=== PATIENT | male | born 1985 | race Caucasian/White ===

== ENCOUNTER 2016-11-17 01:07 | Emergency (ER) | payer BC, OTHER ==
[2016-11-17] MEDS ORDERED: diphenhydrAMINE 50 MG/ML 1 ML VIAL IVP STA (01:34)
[2016-11-17] MEDS ORDERED: SODIUM CHLORIDE 0.9% 1,000 ML IV ONE (01:34)
[2016-11-17] MEDS ORDERED: KETOROLAC 30 MG/ML 1 ML VIAL IVP STA (01:37)
[2016-11-17 02:11] LABS: Basophils # (A) 0.1 k/uL (0-0.2); Basophils % (A) 1 %; CH 29.5; CHCM 34.7; Eosinophils # (A) 0.1 k/uL (0-0.7); Eosinophils % (A) 2 %; HCT 43.7 % (39.0-53.0); HDW 2.88; HGB 14.7 gm/dL (13.0-17.5); Luc # (Auto) 0.17; Luc % (Auto) 3; Lymphocytes # (A) 1.7 k/uL (1.0-4.8); Lymphocytes % (A) 33 %; MCH 28.7 pg (25.0-35.0); MCHC 33.6 g/dL (31.0-37.0); MCV 85.3 fL (80.0-100.0); Mean Platelet Volume 8.5; Monocytes # (A) 0.4 k/uL (0-1.0); Monocytes % (A) 7 %; Neutrophils # (A) 2.8 k/uL (1.3-7.7); Neutrophils % (A) 54 %; RBC 5.12 m/uL (4.30-5.90); RDW 13.3 % (11.5-15.5); WBC 5.2 k/uL (3.8-10.6); WBC (Perox) 5.15
[2016-11-17 02:37] LABS: ALT 98 U/L (21-72); AST 55 U/L (17-59); Alkaline Phosphatase 55 U/L (38-126); Anion Gap 8 mmol/L; Blood Urea Nitrogen 12 mg/dL (9-20); Calcium 9.5 mg/dL (8.4-10.2); Carbon Dioxide 24 mmol/L (22-30); Chloride 109 mmol/L (98-107); Glucose 86 mg/dL (74-99); Non-African American GFR(MDRD) >60 (>60 ml/min/1.73 sqM); Sodium 141 mmol/L (137-145); Total Bilirubin 0.4 mg/dL (0.2-1.3); Total Protein 7.3 g/dL (6.3-8.2)
[2016-11-17 02:38] LABS: Potassium 4.1 mmol/L (3.5-5.1)
[2016-11-17 02:53] LABS: Erythrocyte Sedimentation Rate 2 mm/hr (0-15)
--- NOTE | 2016-11-17 03:26 | CT ---
History: Reason: Pain Exam: CT FACIAL Without Contrast axial noncontrast images through the face with multiplanar reformatted images Technique more: CTDI is 32.10 mGy and DLP is 513 mGy-cm Technique more: This CT exam was performed using one or more of the following dose reduction techniques: automated exposure control, adjustment of the mA and/or kV according to patient size, and/or use of iterative reconstruction technique. Comparison: 03/21/2016 FINDINGS: There is mild stranding and edema around the periauricular soft tissues and at the superficial aspect of the right parotid gland. Soft tissue swelling and edema of the soft tissues about the right external auditory canal may be related to inflammatory, infectious process, clinically correlate. No evidence of focal drainable fluid collection identified. Recommend follow-up to resolution. Soft tissue linear weblike areas of thickening adjacent to the right tympanic membrane. The middle ear appears clear. Hypoplastic mastoids appear clear. The TMJs appear normally located. IMPRESSION: There is mild stranding and edema around the periauricular soft tissues and at the superficial aspect of the right parotid gland. Soft tissue swelling and edema of the soft tissues about the right external auditory canal may be related to inflammatory, infectious process, clinically correlate. No evidence of focal drainable fluid collection identified. Recommend follow-up to resolution. Soft tissue linear weblike areas of thickening adjacent to the right tympanic membrane. The middle ear appears clear.
--- NOTE | 2016-11-17 03:29 | ED ---
ENT HPI - General Chief complaint: ENT Stated complaint: ear pain Time Seen by Provider: 11/17/16 01:17 Source: patient, RN notes reviewed, old records reviewed Mode of arrival: ambulatory Limitations: no limitations - History of Present Illness Initial comments: This is a 31 year old male who presents for chief complaint of right ear pain and welling, left ear pain and redness for 3 days. Patient reports he has a lengthy history of ear infections. He states he had a cut underneath the right ear because of swelling, so patient put neosporin on it. Since putting neosporin on it, patient ear has been swelling. Patient reports when he has had previous issues with his ears, he was prescribed drops and oral antibiotics. Patient denies swimming, hot tubs. Patient reports pain and swelling around the ears toward the face and jaw. Patient denies fever, chills, headache, vision changes, shortness of breath, cough, chest pain, nausea, vomiting, diarrhea. MD complaint: ear pain - Related Data Previous Rx's Medication Instructions Recorded Ofloxacin 0.3% Otic Soln [Floxin 10 drops BOTH EARS TID 7 Days 03/21/16 0.3% Otic Soln] Ciprofloxacin HCl [Cipro] 750 mg PO BID 7 Days 11/17/16 HYDROcodone/APAP 10-325MG [[place] 1 tab PO Q6H PRN #12 tab 11/17/16 10-325] Ofloxacin 0.3% Otic Soln [Floxin 10 drops BOTH EARS BID #1 bottle 11/17/16 0.3% Otic Soln] Allergies Allergy/AdvReac Type Severity Reaction Status Date / Time No Known Allergies Allergy Verified 03/21/16 16:20 Review of Systems ROS Statement: Those systems with pertinent positive or pertinent negative responses have been documented in the HPI. ROS Other: All systems not noted in ROS Statement are negative. Past Medical History Past Medical History: Renal Disease History of Any Multi-Drug Resistant Organisms: None Reported Past Surgical History: No Surgical Hx Reported Past Psychological History: No Psychological Hx Reported Smoking Status: Current every day smoker Past Alcohol Use History: None Reported Past Drug Use History: None Reported General Exam Limitations: no limitations General appearance: alert, in no apparent distress Head exam: Present: atraumatic, normocephalic, normal inspection Eye exam: Present: normal appearance, PERRL, EOMI. Absent: scleral icterus, conjunctival injection, periorbital swelling ENT exam: Present: normal exam, normal oropharynx, mucous membranes moist, TM's normal bilaterally (TM normal, ear canal patent. bilateral ears are red, swollwen. Tenderness over mastoid process. ). Absent: normal external ear exam Neck exam: Present: normal inspection. Absent: tenderness, meningismus, lymphadenopathy Respiratory exam: Present: normal lung sounds bilaterally. Absent: respiratory distress, wheezes, rales, rhonchi, stridor Cardiovascular Exam: Present: regular rate, normal rhythm, normal heart sounds. Absent: systolic murmur, diastolic murmur, rubs, gallop, clicks GI/Abdominal exam: Present: soft, normal bowel sounds. Absent: distended, tenderness, guarding, rebound, rigid Extremities exam: Present: normal inspection, full ROM, normal capillary refill. Absent: tenderness, pedal edema, joint swelling, calf tenderness Back exam: Present: normal inspection Neurological exam: Present: alert, oriented X3, CN II-XII intact Psychiatric exam: Present: normal affect, normal mood Skin exam: Present: warm, dry, intact, normal color. Absent: rash Course Vital Signs 11/17/16 11/17/16 01:11 03:52 Temperature 97.6 F 97.8 F Pulse Rate 102 H 79 Respiratory 18 16 Rate Blood Pressure 180/103 153/96 O2 Sat by Pulse 100 99 Oximetry Medical Decision Making - Medical Decision Making his is a year ol irvin who presents for chief complaint of right ear pain and welling, left ear pain and redness for 3 days. Patient reports he has a lengthy history of ear infections. He states he had a cut underneath the right ear because of swelling, so patient put neosporin on it. Since putting neosporin on it, patient ear has been swelling. Patient reports when he has had previous issues with his ears, he was prescribed drops and oral antibiotics. Patient has significant swelling and erythema on bilateral ears. Patient appears to be hacing an allergic reaction to neosporin, as well as soft tissue inflammation or infection. PAtient is tender over mastoid process. CT facial bones completed , no evidence of mastoiditis. Patient lab work was benign. Patient will be started opn floxacin drops, as well as cipro PO. Patient old records report that that has worked well for his ear issues in the past. - Lab Data Result diagrams: 11/17/16 01:40 11/17/16 01:40 Lab Results 11/17/16 11/17/16 11/17/16 Range/Units 01:40 01:40 01:40 WBC 5.2 (3.8-10.6) k/uL RBC 5.12 (4.30-5.90) m/uL Hgb 14.7 (13.0-17.5) gm/dL Hct 43.7 (39.0-53.0) % MCV 85.3 (80.0-100.0) fL MCH 28.7 (25.0-35.0) pg MCHC 33.6 (31.0-37.0) g/dL RDW 13.3 (11.5-15.5) % Plt Count 144 L (150-450) k/uL Neutrophils % 54 % Lymphocytes % 33 % Monocytes % 7 % Eosinophils % 2 % Basophils % 1 % Neutrophils # 2.8 (1.3-7.7) k/uL Lymphocytes # 1.7 (1.0-4.8) k/uL Monocytes # 0.4 (0-1.0) k/uL Eosinophils # 0.1 (0-0.7) k/uL Basophils # 0.1 (0-0.2) k/uL ESR 2 (0-15) mm/hr Sodium 141 (137-145) mmol/L Potassium 4.1 (3.5-5.1) mmol/L Chloride 109 H (98-107) mmol/L Carbon Dioxide 24 (22-30) mmol/L Anion Gap 8 mmol/L BUN 12 (9-20) mg/dL Creatinine 0.80 (0.66-1.25) mg/dL Est GFR (MDRD) Af Amer >60 (>60 ml/min/1.73 sqM) Est GFR (MDRD) Non-Af >60 (>60 ml/min/1.73 sqM) Glucose 86 (74-99) mg/dL Plasma Lactic Acid Leander 1.3 (0.7-2.0) mmol/L Calcium 9.5 (8.4-10.2) mg/dL Total Bilirubin 0.4 (0.2-1.3) mg/dL AST 55 (17-59) U/L ALT 98 H (21-72) U/L Alkaline Phosphatase 55 (38-126) U/L Total Protein 7.3 (6.3-8.2) g/dL Albumin 4.7 (3.5-5.0) g/dL - Radiology Data Radiology results: report reviewed Mild stranding and edema at the periauricular soft tissues of the superficial aspect of the right parotid gland. Soft tissue swelling and edema of the soft tissues of the right external auditory canal her knowledge are canal AV related to inflammatory, infectious process. No evidence of focal drainable fluid collection identified. Soft linear weblike areas of thickening adjacent to the right tympanic membrane. Middle ear appears clear. Disposition Clinical Impression: Allergic reaction caused by a drug, Ear infection Disposition: ADMITTED IP TO THIS [facility] Condition: Stable Instructions: Otitis Externa (ED) Additional Instructions: Advised to follow-up with ENT specialist as soon as possible. Continue use the antibiotic eardrops. Take pain medication as needed. Patient is advised to stay home from work for the next day. Return to the emergency department if any alarming signs or symptoms occur. Prescriptions: Ciprofloxacin HCl [Cipro] 750 mg PO BID 7 Days HYDROcodone/APAP 10-325MG [[place] 10-325] 1 tab PO Q6H PRN #12 tab PRN Reason: Pain Ofloxacin 0.3% Otic Soln [Floxin 0.3% Otic Soln] 10 drops BOTH EARS BID #1 bottle Referrals: Celestino Estrada DO [Doctor of Osteopathic Medicine] - 1-2 days Time of Disposition: 03:41
[2016-11-17] MEDS ORDERED: HYDROmorphone 1 MG/ML 1 ML SYRINGE IVP STA (03:38)
[2016-11-17] MEDS ORDERED: CIPROFLOXACIN HCL 500 MG TAB PO STA (03:39)
[2016-11-17 03:53] VITALS: BP 153/96; PULSE 79; RESP 16; TEMP 97.8
== END 2016-11-17 04:07 | disposition home or self-care (01) ==
LOC: EC 01:07
DX: H92.01 Otalgia, right ear (principal); R22.0 Localized swelling, mass and lump, head; H93.8X1 Other specified disorders of right ear; T50.905A Adverse effect of unspecified drugs, medicaments and biological substances, initial encounter; H60.391 Other infective otitis externa, right ear; F17.200 Nicotine dependence, unspecified, uncomplicated
CPT/HCPCS: 99284; 96374; 96375 ×2; 96361; 36415; 80053; 86696; 86694; 86695; 85652; 83605; 85025; 70486; J1200; J1885; J1170

== ENCOUNTER 2016-12-07 19:39 | Emergency (ER) | payer SELFPAY ==
[2016-12-07 19:48] VITALS: BP 167/97; PULSE 105; RESP 18; TEMP 97.5
[2016-12-07] MEDS ORDERED: ACET/COD 300 MG/30 MG STARTER PACK 6 TAB BTL PO STA (20:07)
[2016-12-07] MEDS ORDERED: CIPROFLOXACIN-DEXAMETH 0.3-0.1% DROPS 7.5 ML BTL RIGHT EAR STA (20:08)
--- NOTE | 2016-12-07 20:13 | ED ---
General Adult HPI - General Chief complaint: Fall Stated complaint: Fall-head pain Time Seen by Provider: 12/07/16 19:56 Source: patient, RN notes reviewed Mode of arrival: ambulatory Limitations: no limitations - History of Present Illness Initial comments: 31 year old male presents to the ER complaining of recent fall secondary to ear pain. He states that he has a long-standing history of urinary issues including eczema and multiple infections. He states that his right ear has been causing him discomfort and dizziness. He states that he was walking on the stairs when he became dizzy he went to grab the railing and his right head hit the railing he pushed off because he didn't want hit his head too hard and hit his right shoulder on the other side. He states that he did not lose consciousness and has had no vomiting. He states that he has had no memory loss , no blurry vision, no double vision. He states that he has not taken anything for pain at this point. But that he describes his pain is moderate to severe. He states that his shoulder is uncomfortable he does have full range of motion and he feels that it is what he describes as tight. - Related Data Previous Rx's Medication Instructions Recorded Acetaminophen-Codeine 300-30mg 1 tab PO Q6H PRN #20 tablet 12/07/16 [Tylenol #3] Ibuprofen [Motrin] 800 mg PO TID #30 tab 12/07/16 Allergies Allergy/AdvReac Type Severity Reaction Status Date / Time No Known Allergies Allergy Verified 03/21/16 16:20 Review of Systems ROS Statement: Those systems with pertinent positive or pertinent negative responses have been documented in the HPI. ROS Other: All systems not noted in ROS Statement are negative. Past Medical History Past Medical History: Renal Disease History of Any Multi-Drug Resistant Organisms: None Reported Past Surgical History: No Surgical Hx Reported Past Psychological History: No Psychological Hx Reported Smoking Status: Current every day smoker Past Alcohol Use History: None Reported Past Drug Use History: None Reported General Exam Limitations: no limitations General appearance: alert, in distress (Secondary to discomfort) Head exam: Present: normocephalic, other (Mild edema left parietal scalp. No abrasion, laceration.) Eye exam: Present: normal appearance, PERRL, EOMI Pupils: Present: normal accommodation ENT exam: Present: other (Right ear: Diffuse eczema with skin breakdown exterior ear. External auditory canal with edema, erythema, mild discharge. Unable to fully visualize tympanic membrane. Left ER: External ear within normal limits, evidence of scarring on the tympanic membrane no erythema.) Neck exam: Present: normal inspection Respiratory exam: Present: normal lung sounds bilaterally Cardiovascular Exam: Present: regular rate, normal rhythm Extremities exam: Present: normal inspection, full ROM, tenderness (Anterior shoulder), normal capillary refill, other (Neurovascular status of right upper extremity is intact. He does have full range of motion and full muscular strength.) Neurological exam: Present: alert, oriented X3, CN II-XII intact, normal gait Psychiatric exam: Present: normal affect, normal mood Skin exam: Present: warm, dry, intact Course Vital Signs 12/07/16 19:41 Temperature 97.5 F L Pulse Rate 105 H Respiratory 18 Rate Blood Pressure 167/97 O2 Sat by Pulse 99 Oximetry Medical Decision Making - Medical Decision Making 22 male presents to the ER complaining of ear pain, dizziness, subsequent fall secondary to the dizziness in which he hit his right shoulder and left head. He did not lose consciousness and his neurological exam was within normal limits today. He did have a mild amount of swelling on the scalp. No abrasion or laceration. I did not feel that any imaging was necessary due to remarkable exam. His right ear did have diffuse skin breakdown and evidence of otitis externa. We'll recommend treating the otitis externa and his first was a Ciprodex was given in the ER. Due to diffuse pain with this was given Tylenol 3 in the ER as well as a prescription to use at home. Was recommended to alternate Tylenol and ibuprofen to help with swelling. Shoulder exam appeared to be indicative of a shoulder strain and contusion. He does not have any laceration or abrasion or ecchymosis. No step-off and template the shoulder appeared to be without any dislocation or subluxation. The patient had full range of motion and only some mild anterior tenderness. Was discussed with the patient mother not to an x-ray wouldn't decided to hold off on that at this point as he has a fairly benign exam. Stated that the Motrin and Tylenol will help decrease the discomfort and I recommended rest and ice to the area. He was encouraged to reestablish with a primary physician and ENT with his long- standing ear issues. All questions were answered and patient was agreeable with treatment plan. To return to the ER if any worsening symptoms or new concerns. He shouldn't to watch for any concussive symptoms including vision changes, severe headache, vomiting. Disposition Clinical Impression: Otitis externa of right ear, Fall, Hematoma of scalp, Shoulder contusion Disposition: HOME SELF-CARE Condition: Stable Instructions: Otitis Externa (ED), Shoulder Pain (ED) Additional Instructions: Encouraged to establish with a primary care physician this week. To return to the ER with any worsening symptoms or concerns. Also recommend establishing with ear nose and throat doctor. Warning signs and symptoms of a concussion were discussed with the patient he is return if any of these. Prescriptions: Acetaminophen-Codeine 300-30mg [Tylenol #3] 1 tab PO Q6H PRN #20 tablet PRN Reason: Pain Ibuprofen [Motrin] 800 mg PO TID #30 tab Referrals: Ruth Ann MD [STAFF PHYSICIAN] - 1-2 days David Romeo MD [STAFF PHYSICIAN] - 1-2 days Time of Disposition: 20:29
== END 2016-12-07 20:24 | disposition home or self-care (01) ==
LOC: EC 19:39
DX: S00.03XA Contusion of scalp, initial encounter (principal); S40.011A Contusion of right shoulder, initial encounter; H60.91 Unspecified otitis externa, right ear; F17.200 Nicotine dependence, unspecified, uncomplicated; W10.9XXA Fall (on) (from) unspecified stairs and steps, initial encounter; Y92.009 Unspecified place in unspecified non-institutional (private) residence as the place of occurrence of the external cause
CPT/HCPCS: 99283

== ENCOUNTER 2016-12-31 23:51 | Emergency (ER) | payer BC, OTHER ==
--- NOTE | 2017-01-01 02:23 | XR ---
ADDENDUM - Added by Alexandra Easton M.D. on 01/01/2017 2:24 AM (-07:00) Impression should read: No acute fracture or dislocation identified. Trace right knee joint effusion. Possible thin linear ossification in the medial distal right thigh muscles, nonspecific. EXAM: XR Right Knee, 3 views CLINICAL HISTORY: Reason: Pain in RT knee from repeatitive motion at work. TECHNIQUE: Three views of the right knee. COMPARISON: None FINDINGS: Bones/joints: No acute fracture or dislocation identified. Joint space is maintained. No bony lesion. Trace right knee joint effusion. Thin linear ossification projected over the medial distal right thigh muscles, nonspecific. Soft tissues: Normal. IMPRESSION: No acute abnormality identified.
[2017-01-01] MEDS ORDERED: KETOROLAC 60 MG/2 ML VIAL IM STA (02:50)
--- NOTE | 2017-01-01 02:51 | ED ---
Extremity Problem HPI - General Chief complaint: Extremity Problem,Nontraumatic Stated complaint: R knee pain Time Seen by Provider: 01/01/17 02:29 Source: patient, RN notes reviewed Mode of arrival: ambulatory Limitations: no limitations - History of Present Illness Initial comments: Patient is a 31-year-old male presents to the emergency room for evaluation of right knee pain. Patient states he began having right knee pain since 9:00 this evening while at work. Patient states he does perform repetitive motions with his right knee. Patient states he is having pain underneath his kneecap. Patient states the pain extends to the medial portion of his knee. Patient denies any paresthesias. Patient states the pain shoots up his thigh and down his leg. Patient denies calf pain. Patient denies any specific trauma or injury to his knee. Patient denies any redness or warmth that his knee. Patient denies significant swelling. - Related Data Previous Rx's Medication Instructions Recorded Ibuprofen [Motrin] 600 mg PO Q6HR PRN #20 tab 01/01/17 Allergies Allergy/AdvReac Type Severity Reaction Status Date / Time No Known Allergies Allergy Verified 01/01/17 00:00 Review of Systems ROS Statement: Those systems with pertinent positive or pertinent negative responses have been documented in the HPI. ROS Other: All systems not noted in ROS Statement are negative. Past Medical History Past Medical History: Renal Disease History of Any Multi-Drug Resistant Organisms: None Reported Past Surgical History: No Surgical Hx Reported Past Psychological History: No Psychological Hx Reported Smoking Status: Current every day smoker Past Alcohol Use History: None Reported Past Drug Use History: None Reported General Exam - General Exam Comments Initial Comments: sitting in exam room, no acute distress. Limitations: no limitations General appearance: alert, in no apparent distress Head exam: Present: atraumatic, normocephalic, normal inspection Eye exam: Present: normal appearance ENT exam: Present: normal exam Neck exam: Present: normal inspection Respiratory exam: Present: normal lung sounds bilaterally. Absent: respiratory distress Cardiovascular Exam: Present: regular rate, normal rhythm, normal heart sounds Right Knee exam: Present: normal inspection, full ROM, tenderness (palpating over the patella and over the medial knee joint). Absent: swelling Lower Leg exam: Present: normal inspection. Absent: tenderness Ankle exam: Present: normal inspection. Absent: tenderness Foot/Toe exam: Present: normal inspection. Absent: tenderness Neurovascular tendon exam: Present: no vascular compromise. Absent: pulse deficit (2+ dorsal pedal and posterior tibial pulses), abnormal cap refill ( capillary refill less than 2 seconds) Back exam: Present: normal inspection Neurological exam: Present: alert, oriented X3, CN II-XII intact, normal gait Psychiatric exam: Present: normal affect, normal mood Skin exam: Present: warm, dry, intact, normal color. Absent: rash Course Vital Signs 12/31/16 01/01/17 23:57 03:05 Temperature 99 F 97.3 F L Pulse Rate 102 H 79 Respiratory 18 16 Rate Blood Pressure 179/105 139/93 O2 Sat by Pulse 99 100 Oximetry Medical Decision Making - Medical Decision Making Patient is a 31-year-old male presents to the room for evaluation of right knee pain. No significant swelling or erythema noted. No heat at the area. No signs of infection noted. X-ray shows no significant findings besides small joint effusion. Patient placed in Marcell wrap and given crutches and advised to follow-up with internet security specialist. Patient states he understands everything that was discussed with him. Return parameters discussed. - Radiology Data Radiology results: report reviewed, image reviewed Disposition Clinical Impression: Right knee sprain Disposition: HOME SELF-CARE Condition: Good Instructions: Knee Sprain (ED) Additional Instructions: Rest, elevate and ice and off for 10-15 minutes for the next 24-48 hours. Take Tylenol or Motrin as needed for pain. Please follow-up with internet security specialist in 7-10 days if symptoms are not improving. If new symptoms develop or symptoms worsen, please return to the ER. Prescriptions: Ibuprofen [Motrin] 600 mg PO Q6HR PRN #20 tab PRN Reason: Pain Referrals: Shawn Montemayor MD [STAFF PHYSICIAN] - 1-2 days Time of Disposition: 02:58
[2017-01-01 03:08] VITALS: BP 139/93; PULSE 79; RESP 16; TEMP 97.3
== END 2017-01-01 03:27 | disposition home or self-care (01) ==
LOC: EC 23:51
DX: S83.91XA Sprain of unspecified site of right knee, initial encounter (principal); M25.461 Effusion, right knee; M25.551 Pain in right hip; M79.661 Pain in right lower leg; F17.200 Nicotine dependence, unspecified, uncomplicated; X50.3XXA Overexertion from repetitive movements, initial encounter; Y92.69 Other specified industrial and construction area as the place of occurrence of the external cause; Y99.0 Civilian activity done for income or pay
CPT/HCPCS: 73562; 99283; 96372; J1885

== ENCOUNTER 2017-02-22 10:31 | Emergency (ER) | payer OTHER ==
[2017-02-22 10:36] VITALS: BP 180/102; PULSE 88; RESP 20; TEMP 97.3
[2017-02-22] MEDS ORDERED: AMOXIC-POT CLAV 875MG STARTER 2 EACH TABLET PO STA (11:10)
[2017-02-22] MEDS ORDERED: predniSONE 50 MG TAB PO STA (11:10)
--- NOTE | 2017-02-22 11:13 | ED ---
General Adult HPI - General Chief complaint: ENT Stated complaint: swollen ear and face Time Seen by Provider: 02/22/17 10:45 Source: patient, RN notes reviewed Mode of arrival: ambulatory Limitations: no limitations - History of Present Illness Initial comments: Patient 31-year-old male who presents emergency room today with a chief complaint of possible right ear infection. He does admit that he woke up the middle of night feeling some discomfort in the right ear shows increased swelling to that area in the right side of the face as well. Patient denies any drainage. He does admit that yesterday he was outside. He does admit that he remembers a bug landing on his ear but does not believe he was bit. Patient denies any other complaints. Patient denies any recent fever, chills, shortness of breath, chest pain, back pain, abdominal pain, nausea or vomiting, numbness or tingling, dysuria or hematuria, constipation or diarrhea, headaches or visual changes, or any other complaints. - Related Data Previous Rx's Medication Instructions Recorded Ibuprofen [Motrin] 600 mg PO Q6HR PRN #20 tab 01/01/17 Amoxicillin/Potassium Clav 1 each PO Q12HR #20 tab 02/22/17 [Augmentin 875-125 Tablet] Ofloxacin 0.3% Otic Soln [Floxin 10 drops RIGHT EAR BID 7 Days 02/22/17 0.3% Otic Soln] diphenhydrAMINE [Benadryl] 1 - 2 tab PO Q6HR PRN #30 capsule 02/22/17 predniSONE 50 mg PO DAILY #4 tab 02/22/17 Allergies Allergy/AdvReac Type Severity Reaction Status Date / Time No Known Allergies Allergy Verified 02/22/17 10:36 Review of Systems ROS Statement: Those systems with pertinent positive or pertinent negative responses have been documented in the HPI. ROS Other: All systems not noted in ROS Statement are negative. Past Medical History Past Medical History: Renal Disease History of Any Multi-Drug Resistant Organisms: None Reported Past Surgical History: No Surgical Hx Reported Past Psychological History: No Psychological Hx Reported Smoking Status: Current every day smoker Past Alcohol Use History: None Reported Past Drug Use History: None Reported General Exam - General Exam Comments Initial Comments: Patient will be started on antibiotics also treated for possible reaction with Benadryl and steroids. Patient advised follow-up family doctor over the next 2 days. Advised return if symptoms increase or worsen or for any other concerns. Limitations: no limitations Course Vital Signs 02/22/17 10:34 Temperature 97.3 F L Pulse Rate 88 Respiratory 20 Rate Blood Pressure 180/102 O2 Sat by Pulse 99 Oximetry Disposition Clinical Impression: Acute otitis externa Disposition: HOME SELF-CARE Condition: Good Instructions: Otitis Externa (ED) Additional Instructions: Please use Benadryl one to 2 tabs every 6 hours as discussed. Please use steroids and antibiotics as prescribed. Please follow-up the family doctor over the next 2 days or return here to the emergency room for any other concerns. Prescriptions: Amoxicillin/Potassium Clav [Augmentin 875-125 Tablet] 1 each PO Q12HR #20 tab diphenhydrAMINE [Benadryl] 1 - 2 tab PO Q6HR PRN #30 capsule PRN Reason: Allergic Reaction Ofloxacin 0.3% Otic Soln [Floxin 0.3% Otic Soln] 10 drops RIGHT EAR BID 7 Days predniSONE 50 mg PO DAILY #4 tab Referrals: None,Stated [Primary Care Provider] - 1-2 days Love Will MD [STAFF PHYSICIAN] - 1-2 days Time of Disposition: 11:11
[2017-02-22] MEDS: diphenhydrAMINE 50 MG CAP PO STA ×2 (11:38→11:39)
== END 2017-02-22 11:42 | disposition home or self-care (01) ==
LOC: EC 10:31
DX: H60.501 Unspecified acute noninfective otitis externa, right ear (principal); F17.200 Nicotine dependence, unspecified, uncomplicated
CPT/HCPCS: 99283; J7512

== ENCOUNTER 2017-03-16 23:56 | Emergency (ER) | payer OTHER ==
--- NOTE | 2017-03-17 01:41 | ED ---
General Adult HPI - General Chief complaint: Skin/Abscess/Foreign Body Stated complaint: allergic reaction Time Seen by Provider: 03/17/17 01:27 Source: patient, RN notes reviewed Mode of arrival: ambulatory Limitations: no limitations - History of Present Illness Initial comments: 31-year-old male presents with penile rash. Worsening over the past several weeks. Patient states proximately multiple he was tested for STDs and this was negative. Rash is been worsening over the past week. It is red and itchy as well as painful. He has been sexually active with the same partner was also tested and the patient reports her testing was negative as well. He does report masturbating excessively, not allowing the lesions on his penis to heal. He has been putting a and D Ointment on it with minimal relief. He has been masturbating multiple times per day. - Related Data Previous Rx's Medication Instructions Recorded valACYclovir HCL [Valtrex] 1,000 mg PO Q12HR #20 tab 03/17/17 Allergies Allergy/AdvReac Type Severity Reaction Status Date / Time No Known Allergies Allergy Verified 03/17/17 00:00 Review of Systems ROS Statement: Those systems with pertinent positive or pertinent negative responses have been documented in the HPI. ROS Other: All systems not noted in ROS Statement are negative. Past Medical History Past Medical History: Renal Disease History of Any Multi-Drug Resistant Organisms: None Reported Past Surgical History: No Surgical Hx Reported Past Psychological History: No Psychological Hx Reported Smoking Status: Current every day smoker Past Alcohol Use History: None Reported Past Drug Use History: None Reported General Exam Limitations: no limitations General appearance: alert, in no apparent distress Head exam: Present: atraumatic, normocephalic Eye exam: Present: normal appearance, PERRL ENT exam: Present: normal exam, mucous membranes moist Neck exam: Present: normal inspection Respiratory exam: Present: normal lung sounds bilaterally, respiratory distress Cardiovascular Exam: Present: regular rate, normal rhythm GI/Abdominal exam: Present: soft, distended. Absent: tenderness Rectal exam: Present: deferred exam: Present: circumcision, other (Superficial linear lesions along the right lateral edge of the penis and glans. No obvious vesicular lesions). Absent: testicular tenderness, urethral discharge Extremities exam: Present: normal inspection Back exam: Present: normal inspection Neurological exam: Present: alert. Absent: oriented X3 Psychiatric exam: Present: normal affect, normal mood Skin exam: Present: warm, dry, rash Course Vital Signs 03/16/17 23:57 Temperature 98.3 F Pulse Rate 82 Respiratory 18 Rate Blood Pressure 168/88 O2 Sat by Pulse 98 Oximetry Medical Decision Making - Medical Decision Making 31-year-old male withpast history presents for evaluation of penile rash or lesions. Exam does show multiple excoriations and cracked epidermis along the penis and glans. There is no vesicular lesions., However this is somewhat concerning for herpes infection. Patient has tested negative in the past. This may also be related to excessive masturbation. He is instructed to continue applying A+D Ointment and stop masturbating until lesions are healed. He will be given a prescription for Valtrex as this may be herpes infection. He is encouraged to follow up with his primary care physician for repeat STD testing. Disposition Clinical Impression: Genital lesion, male Disposition: HOME SELF-CARE Condition: Good Instructions: Genital Herpes Simplex (ED) Prescriptions: valACYclovir HCL [Valtrex] 1,000 mg PO Q12HR #20 tab Referrals: None,Stated [Primary Care Provider] - 1-2 days Love Will MD [STAFF PHYSICIAN] - 1-2 days Time of Disposition: 01:40
[2017-03-17 02:12] VITALS: BP 151/100; PULSE 73; RESP 16; TEMP 97.8
== END 2017-03-17 02:12 | disposition home or self-care (01) ==
LOC: EC 23:56
DX: L98.9 Disorder of the skin and subcutaneous tissue, unspecified (principal); F17.200 Nicotine dependence, unspecified, uncomplicated
CPT/HCPCS: 99283

== ENCOUNTER 2017-04-28 11:38 | Emergency (ER) | payer OTHER ==
[2017-04-28 11:47] VITALS: TEMP 97.2
[2017-04-28] MEDS ORDERED: IBUPROFEN 600 MG TAB PO STA (12:35)
--- NOTE | 2017-04-28 12:35 | ED ---
General Adult HPI - General Chief complaint: Extremity Injury, Upper Stated complaint: Hand Injury Time Seen by Provider: 04/28/17 12:08 Source: patient, RN notes reviewed Mode of arrival: ambulatory Limitations: no limitations - History of Present Illness Initial comments: 31-year-old male presents emergency Department chief complaint of right hand injury. Patient's hand was crushed between the dresser and the wall. Patient states this happened today. Patient denies any other injuries. Patient states pain is moderate worse to movement or touch. Patient denies any wrist or elbow pain. Patient was concerned due to his symptoms without that he should be evaluated. Patient denies any recent fever, chills, shortness of breath, chest pain, back pain, abdominal pain, nausea vomiting, numbness or tingling, dysuria or hematuria, constipation or diarrhea, headaches or visual changes, or any other current symptoms. - Related Data Previous Rx's Medication Instructions Recorded valACYclovir HCL [Valtrex] 1,000 mg PO Q12HR #20 tab 03/17/17 Ibuprofen [Motrin] 600 mg PO Q6HR PRN #20 tab 04/28/17 Allergies Allergy/AdvReac Type Severity Reaction Status Date / Time No Known Allergies Allergy Verified 04/28/17 11:47 Review of Systems ROS Statement: Those systems with pertinent positive or pertinent negative responses have been documented in the HPI. ROS Other: All systems not noted in ROS Statement are negative. Past Medical History Past Medical History: Renal Disease History of Any Multi-Drug Resistant Organisms: None Reported Past Surgical History: No Surgical Hx Reported Past Psychological History: No Psychological Hx Reported Smoking Status: Current every day smoker Past Alcohol Use History: None Reported Past Drug Use History: None Reported General Exam - General Exam Comments Initial Comments: General: The patient is awake and alert, in no distress, and does not appear acutely ill. Neck: The neck is supple, there is no tenderness. Cardiovascular: There is a regular rate and rhythm. No murmur, rub or gallop is appreciated. Respiratory: Lungs are clear to auscultation, respirations are non-labored, breath sounds are equal. No wheezes, stridor, rales, or rhonchi. Musculoskeletal: Patient has full range motion of right wrist and right hand. Patient does appear to have tenderness over the metacarpal carpals. No tenderness throughout the phalanges. Patient has have full range of motion and good strength. Sensation intact. Neurological: CN II-XII intact, There are no obvious motor or sensory deficits. Coordination appears grossly intact. Speech is normal. Skin: Skin is warm and dry and no rashes or lesions are noted. Psychiatric: Normal mood and affect. Limitations: no limitations Course Vital Signs 04/28/17 04/28/17 11:45 12:39 Temperature 97.2 F L Pulse Rate 83 81 Respiratory 16 18 Rate Blood Pressure 163/100 142/90 O2 Sat by Pulse 100 99 Oximetry Medical Decision Making - Medical Decision Making 31-year-old male presents with history of right hand contusion. Discussed Motrin Tylenol and ice for the pain. Discussed return parameters and follow-up and all questions. Patient stated they understood and they are in agreement with this plan. All questions have been answered. This time patient will be discharged home. Disposition Clinical Impression: Contusion of right hand Disposition: HOME SELF-CARE Condition: Stable Instructions: Contusion in Adults (ED) Additional Instructions: Please use medication as discussed. Please follow up with family doctor if symptoms have not improved over the next two days. Please return to the emergency room if your symptoms increase or worsen or for any other concerns. Prescriptions: Ibuprofen [Motrin] 600 mg PO Q6HR PRN #20 tab PRN Reason: Pain Referrals: Brittney Garcia MD [STAFF PHYSICIAN] - 1-2 days Time of Disposition: 12:47
[2017-04-28 12:39] VITALS: BP 142/90; PULSE 81; RESP 18
--- NOTE | 2017-04-28 12:45 | XR ---
Right hand and right wrist HISTORY: Trauma and pain 3 views of the right hand correlated to 4 views of the right wrist same date Bone mineralization, joint spaces and alignment are maintained. IMPRESSION: No fracture or dislocation is evident, follow-up as indicated.
== END 2017-04-28 12:52 | disposition home or self-care (01) ==
LOC: EC 11:38
DX: S60.221A Contusion of right hand, initial encounter (principal); F17.200 Nicotine dependence, unspecified, uncomplicated; W23.1XXA Caught, crushed, jammed, or pinched between stationary objects, initial encounter
CPT/HCPCS: 99283

== ENCOUNTER 2019-02-25 20:35 | Emergency (ER) | payer OTHER ==
[2019-02-25 20:52] VITALS: RESP 18; TEMP 98.5
[2019-02-25] MEDS ORDERED: HYDROcodone/APAP 5-325MG 1 EACH TAB PO STA (22:07)
[2019-02-25] MEDS ORDERED: IBUPROFEN 400 MG TAB PO STA (22:07)
--- NOTE | 2019-02-25 22:12 | ED ---
Skin/Abscess/FB HPI - General Chief complaint: Skin/Abscess/Foreign Body Stated complaint: rt achilles pain Time Seen by Provider: 02/25/19 21:13 Source: patient Mode of arrival: ambulatory Limitations: no limitations - History of Present Illness Initial comments: This patient is a 33-year-old man who presents with concerns about infection near his Achilles tendon. The patient states that he had ruptured the tendon earlier this year and it was repaired in September by Dr. Chong. He states that subsequent to that, toward the end of December he had an infection at the surgical site and had been admitted in the hospital and continued antibiotics. He states that it seemed to clear up and then recur and he just finished proximally 2 weeks of an antibiotic. He has now been off of the antibiotic for 2 days and has noticed that he starting to have some redness, warmth, and swelling near the surgical site. He states that there has been some drainage from the surgical site which looks like pus. No fever or chills. No other systemic symptoms. MD complaint: abscess/boil Onset/Timin -: days(s) Tetanus Up to Date: yes Location: RLE Severity: moderate Quality: burning, dull Consistency: constant Improves with: none Worsens with: palpation Context: recent antibiotic Associated symptoms: denies other symptoms Treatments Prior to Arrival: bandages - Related Data Home Medications Medication Instructions Recorded Confirmed amLODIPine [Norvasc] 10 mg PO DAILY 02/25/19 02/25/19 Previous Rx's Medication Instructions Recorded Sulfamethox-Tmp 800-160Mg [Bactrim 1 each PO Q12HR #14 tab 02/25/19 Ds] Allergies Allergy/AdvReac Type Severity Reaction Status Date / Time No Known Allergies Allergy Verified 02/25/19 21:30 Review of Systems ROS Statement: Those systems with pertinent positive or pertinent negative responses have been documented in the HPI. ROS Other: All systems not noted in ROS Statement are negative. Constitutional: Denies: fever, chills Respiratory: Denies: cough, dyspnea Cardiovascular: Denies: chest pain, palpitations Skin: Reports: as per HPI, change in color, other (Possible infection) Neurological: Denies: weakness, numbness Past Medical History Past Medical History: Hypertension, Renal Disease History of Any Multi-Drug Resistant Organisms: None Reported Past Surgical History: No Surgical Hx Reported Additional Past Surgical History / Comment(s): right achilles tendon rupture Past Psychological History: No Psychological Hx Reported Smoking Status: Current every day smoker Past Alcohol Use History: None Reported Past Drug Use History: None Reported General Exam Limitations: no limitations General appearance: alert, in no apparent distress Head exam: Present: atraumatic, normocephalic Respiratory exam: Present: normal lung sounds bilaterally. Absent: respiratory distress, wheezes, rales, rhonchi, stridor Cardiovascular Exam: Present: regular rate, normal rhythm, normal heart sounds. Absent: systolic murmur, diastolic murmur, rubs, gallop Extremities exam: Present: full ROM, normal capillary refill. Absent: pedal edema, calf tenderness Skin exam: Present: warm, dry, erythema, other (Patient has a small amount of purulent drainage which was able to be expressed from the surgical site over his Achilles tendon. There is also a little bit of erythema, swelling, and warmth adjacent.) Course Vital Signs 02/25/19 20:47 Temperature 98.5 F Pulse Rate 78 Respiratory 18 Rate Blood Pressure 179/102 O2 Sat by Pulse 98 Oximetry Medical Decision Making - Lab Data Result diagrams: 02/25/19 21:50 02/25/19 21:50 Lab Results 02/25/19 02/25/19 Range/Units 21:50 21:50 WBC 7.6 (3.8-10.6) k/uL RBC 5.21 (4.30-5.90) m/uL Hgb 14.6 (13.0-17.5) gm/dL Hct 43.5 (39.0-53.0) % MCV 83.6 (80.0-100.0) fL MCH 28.0 (25.0-35.0) pg MCHC 33.5 (31.0-37.0) g/dL RDW 15.2 (11.5-15.5) % Plt Count 188 (150-450) k/uL Neutrophils % 62 % Lymphocytes % 28 % Monocytes % 5 % Eosinophils % 3 % Basophils % 1 % Neutrophils # 4.7 (1.3-7.7) k/uL Lymphocytes # 2.1 (1.0-4.8) k/uL Monocytes # 0.4 (0-1.0) k/uL Eosinophils # 0.2 (0-0.7) k/uL Basophils # 0.1 (0-0.2) k/uL Sodium 142 (137-145) mmol/L Potassium 4.4 (3.5-5.1) mmol/L Chloride 104 (98-107) mmol/L Carbon Dioxide 26 (22-30) mmol/L Anion Gap 12 mmol/L BUN 9 (9-20) mg/dL Creatinine 0.79 (0.66-1.25) mg/dL Est GFR (CKD-EPI)AfAm >90 (>60 ml/min/1.73 sqM) Est GFR (CKD-EPI)NonAf >90 (>60 ml/min/1.73 sqM) Glucose 104 H (74-99) mg/dL Calcium 9.9 (8.4-10.2) mg/dL C-Reactive Protein <5.0 (<10.0) mg/L Disposition Clinical Impression: Wound infection Disposition: HOME SELF-CARE Condition: Good Instructions (If sedation given, give patient instructions): Wound Infection (ED) Prescriptions: Sulfamethox-Tmp 800-160Mg [Bactrim Ds] 1 each PO Q12HR #14 tab Is patient prescribed a controlled substance at d/c from ED?: No Referrals: None,Stated [Primary Care Provider] - 1-2 days Gustabo Staley MD [STAFF PHYSICIAN] - 1-2 days
[2019-02-25 22:13] LABS: Basophils # (A) 0.1 k/uL (0-0.2); Basophils % (A) 1 %; Eosinophils # (A) 0.2 k/uL (0-0.7); Eosinophils % (A) 3 %; HCT 43.5 % (39.0-53.0); HGB 14.6 gm/dL (13.0-17.5); Lymphocytes # (A) 2.1 k/uL (1.0-4.8); Lymphocytes % (A) 28 %; MCHC 33.5 g/dL (31.0-37.0); MCV 83.6 fL (80.0-100.0); Monocytes # (A) 0.4 k/uL (0-1.0); Monocytes % (A) 5 %; Neutrophils # (A) 4.7 k/uL (1.3-7.7); Neutrophils % (A) 62 %; Platelet Count 188 k/uL (150-450); RBC 5.21 m/uL (4.30-5.90); RDW 15.2 % (11.5-15.5); WBC 7.6 k/uL (3.8-10.6)
[2019-02-25 22:21] LABS: African American GFR (CKD) >90 (>60 ml/min/1.73 sqM); Anion Gap 12 mmol/L; Blood Urea Nitrogen 9 mg/dL (9-20); C Reactive Protein <5.0 mg/L (<10.0); Calcium 9.9 mg/dL (8.4-10.2); Carbon Dioxide 26 mmol/L (22-30); Chloride 104 mmol/L (98-107); Glucose 104 mg/dL (74-99); Potassium 4.4 mmol/L (3.5-5.1); Sodium 142 mmol/L (137-145)
[2019-02-25 23:10] VITALS: BP 157/104; PULSE 73
== END 2019-02-25 23:18 | disposition home or self-care (01) ==
LOC: EC 20:35
DX: T81.49XA Infection following a procedure, other surgical site, initial encounter (principal); I10 Essential (primary) hypertension; F17.200 Nicotine dependence, unspecified, uncomplicated; Z79.899 Other long term (current) drug therapy
CPT/HCPCS: 36415; 80048; 85025; 86140; 87040; 87070; 87077; 87186; 87205; 99283

== ENCOUNTER 2022-01-30 13:48 | Emergency (ER) | payer OTHER ==
[2022-01-30 13:58] VITALS: TEMP 98.6
[2022-01-30] MEDS ORDERED: SODIUM CHLORIDE 0.9% 1,000 ML IV ONE (14:46)
[2022-01-30] MEDS ORDERED: SODIUM CHLORIDE 0.9% 500 ML 500 ML IV ONE (14:46)
[2022-01-30] MEDS ORDERED: LABETALOL 5 MG/ML VIAL MDV IVP STA (14:47)
[2022-01-30] MEDS ORDERED: KETOROLAC 15 MG/ML 1 ML VIAL IVP STA (14:50)
--- NOTE | 2022-01-30 14:51 | ED ---
General Adult HPI - General Chief complaint: Recheck/Abnormal Lab/Rx Stated complaint: Headache,weakness Time Seen by Provider: 01/30/22 14:41 Source: patient, RN notes reviewed Mode of arrival: ambulatory Limitations: no limitations - History of Present Illness Initial comments: This a 36-year-old male presents emergency Department chief complaint of drug abuse. 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 He states he is feel right. He states been having some muscle cramps, body aches, headache. Patient does have a history of hypertension has not been taking his medications. Denies any current complaints of chest pain to states his muscles feel weak and achy. No fevers or chills or shortness breath patient without complaints. - Related Data Home Medications Medication Instructions Recorded Confirmed No Known Home Medications 01/30/22 01/30/22 Previous Rx's Medication Instructions Recorded lisinopriL [Prinivil] 20 mg PO DAILY #30 tab 01/30/22 Allergies Allergy/AdvReac Type Severity Reaction Status Date / Time No Known Allergies Allergy Verified 01/30/22 16:00 Review of Systems ROS Statement: Those systems with pertinent positive or pertinent negative responses have been documented in the HPI. ROS Other: All systems not noted in ROS Statement are negative. Past Medical History Past Medical History: Hypertension, Renal Disease Additional Past Medical History / Comment(s): pt non compliant with BP meds History of Any Multi-Drug Resistant Organisms: None Reported Past Surgical History: No Surgical Hx Reported Additional Past Surgical History / Comment(s): right achilles tendon rupture Past Psychological History: No Psychological Hx Reported Smoking Status: Vaper Past Alcohol Use History: None Reported Past Drug Use History: Cocaine, Methamphetamine, Opiates General Exam Limitations: no limitations General appearance: alert, in no apparent distress Head exam: Present: atraumatic, normocephalic, normal inspection Eye exam: Present: normal appearance, PERRL, EOMI. Absent: scleral icterus, conjunctival injection, periorbital swelling ENT exam: Present: normal exam, normal oropharynx, mucous membranes moist Neck exam: Present: normal inspection, full ROM. Absent: tenderness, meningismus, lymphadenopathy Respiratory exam: Present: normal lung sounds bilaterally. Absent: respiratory distress, wheezes, rales, rhonchi, stridor Cardiovascular Exam: Present: normal rhythm, tachycardia, normal heart sounds. Absent: systolic murmur, diastolic murmur, rubs, gallop, clicks GI/Abdominal exam: Present: soft, normal bowel sounds. Absent: distended, tenderness, guarding, rebound, rigid Neurological exam: Present: alert, oriented X3 Skin exam: Present: warm, dry, intact, normal color. Absent: rash Course Vital Signs 01/30/22 13:50 Temperature 98.6 F Pulse Rate 110 H Respiratory 20 Rate Blood Pressure 210/110 O2 Sat by Pulse 98 Oximetry Medical Decision Making - Medical Decision Making 36-year-old male presented generalized not not feeling well, drug abuse, hypertension. Patient labwork unremarkable. Patient treated for his hypertension. Patient started back on the central return parameters were discussed. - Lab Data Result diagrams: 01/30/22 15:06 01/30/22 15:06 Lab Results 01/30/22 01/30/22 01/30/22 Range/Units 15:06 15:06 15:06 WBC 7.2 (3.8-10.6) k/uL RBC 5.98 H (4.30-5.90) m/uL Hgb 17.4 (13.0-17.5) gm/dL Hct 51.2 (39.0-53.0) % MCV 85.8 (80.0-100.0) fL MCH 29.2 (25.0-35.0) pg MCHC 34.0 (31.0-37.0) g/dL RDW 13.4 (11.5-15.5) % Plt Count 137 L (150-450) k/uL MPV 9.3 Neutrophils % 79 % Lymphocytes % 7 % Monocytes % 9 % Eosinophils % 1 % Basophils % 3 % Neutrophils # 5.7 (1.3-7.7) k/uL Lymphocytes # 0.5 L (1.0-4.8) k/uL Monocytes # 0.6 (0-1.0) k/uL Eosinophils # 0.1 (0-0.7) k/uL Basophils # 0.2 (0-0.2) k/uL Sodium 139 (137-145) mmol/L Potassium 4.7 (3.5-5.1) mmol/L Chloride 104 (98-107) mmol/L Carbon Dioxide 25 (22-30) mmol/L Anion Gap 10 mmol/L BUN 8 L (9-20) mg/dL Creatinine 0.84 (0.66-1.25) mg/dL Est GFR (CKD-EPI)AfAm >90 (>60 ml/min/1.73 sqM) Est GFR (CKD-EPI)NonAf >90 (>60 ml/min/1.73 sqM) Glucose 89 (74-99) mg/dL Calcium 9.5 (8.4-10.2) mg/dL Magnesium 2.0 (1.6-2.3) mg/dL Total Bilirubin 0.3 (0.2-1.3) mg/dL AST 52 (17-59) U/L ALT 69 H (4-49) U/L Alkaline Phosphatase 78 (38-126) U/L Creatine Kinase 55 (55-170) U/L Troponin I <0.012 (0.000-0.034) ng/mL Total Protein 8.1 (6.3-8.2) g/dL Albumin 5.2 H (3.5-5.0) g/dL Disposition Clinical Impression: Hypertension, History of drug abuse, Myalgia Disposition: HOME SELF-CARE Condition: Stable Instructions (If sedation given, give patient instructions): Hypertension (ED) Additional Instructions: Please return to the Emergency Department if symptoms worsen or any other concerns. Prescriptions: lisinopriL [Prinivil] 20 mg PO DAILY #30 tab Is patient prescribed a controlled substance at d/c from ED?: No Referrals: Idris Diana MD [Primary Care Provider] - 1-2 days Time of Disposition: 16:01
[2022-01-30] MEDS ORDERED: LABETALOL SYRINGE 5 MG/ML IVP STA (14:56)
[2022-01-30 15:22] LABS: Basophils # (A) 0.2 k/uL (0-0.2); Basophils % (A) 3 %; Eosinophils # (A) 0.1 k/uL (0-0.7); Eosinophils % (A) 1 %; HCT 51.2 % (39.0-53.0); HGB 17.4 gm/dL (13.0-17.5); Lymphocytes # (A) 0.5 k/uL (1.0-4.8); Lymphocytes % (A) 7 %; MCH 29.2 pg (25.0-35.0); MCV 85.8 fL (80.0-100.0); Mean Platelet Volume 9.3; Monocytes # (A) 0.6 k/uL (0-1.0); Monocytes % (A) 9 %; Neutrophils # (A) 5.7 k/uL (1.3-7.7); Neutrophils % (A) 79 %; Platelet Count 137 k/uL (150-450); RBC 5.98 m/uL (4.30-5.90); RDW 13.4 % (11.5-15.5); WBC 7.2 k/uL (3.8-10.6)
[2022-01-30 15:34] LABS: ALT 69 U/L (4-49); AST 52 U/L (17-59); African American GFR (CKD) >90 (>60 ml/min/1.73 sqM); Albumin 5.2 g/dL (3.5-5.0); Alkaline Phosphatase 78 U/L (38-126); Anion Gap 10 mmol/L; Blood Urea Nitrogen 8 mg/dL (9-20); Calcium 9.5 mg/dL (8.4-10.2); Carbon Dioxide 25 mmol/L (22-30); Chloride 104 mmol/L (98-107); Creatine Kinase 55 U/L (55-170); Glucose 89 mg/dL (74-99); Non-African American GFR(CKD) >90 (>60 ml/min/1.73 sqM); Potassium 4.7 mmol/L (3.5-5.1); Sodium 139 mmol/L (137-145); Total Bilirubin 0.3 mg/dL (0.2-1.3); Total Protein 8.1 g/dL (6.3-8.2)
[2022-01-30] MEDS ORDERED: lisinopriL 10 MG TAB PO STA (16:01)
[2022-01-30 16:56] VITALS: BP 160/89; PULSE 98; RESP 18
== END 2022-01-30 16:56 | disposition home or self-care (01) ==
LOC: EC 13:48
DX: F19.10 Other psychoactive substance abuse, uncomplicated (principal); I10 Essential (primary) hypertension; F17.209 Nicotine dependence, unspecified, with unspecified nicotine-induced disorders
CPT/HCPCS: 36415; 93005; 80053; 82550; 83735; 84484; 85025; 99285; 96374; 96375; 96361; J1885

== ENCOUNTER 2024-11-25 13:35 | Emergency (ER) | payer OTHER ==
--- NOTE | 2024-11-25 14:59 | ED ---
Back Pain HPI - General Chief Complaint: Back Pain/Injury Stated Complaint: back pain Time Seen by Provider: 11/25/24 14:59 Source: patient, RN notes reviewed Limitations: no limitations - History of Present Illness Initial Comments: 39-year-old male presented the ER for evaluation of back pain. Patient states about 3 days ago he quickly turned and felt a sharp burning discomfort to his lumbar spine. He reports this pain has persisted for the past 3 days. There is mild radiation of this pain down the right leg. He denies any weakness, bowel or bladder incontinence or retention/saddle paresthesias, fevers or history of IV drug abuse. Patient has tried massage with no relief of symptoms. He has also tried amor-joe-bzufxau Tylenol for pain control. He denies any prior back injuries or traumas. Patient denies any other complaints at this time. - Related Data Previous Rx's Medication Instructions Recorded lisinopriL [Prinivil] 20 mg PO DAILY #30 tab 01/30/22 Cyclobenzaprine [Flexeril] 10 mg PO TID PRN #15 tab 11/25/24 Lidocaine 5% Patch [Lidoderm] 1 patch TOPICAL DAILY #30 patch 11/25/24 Allergies Allergy/AdvReac Type Severity Reaction Status Date / Time No Known Allergies Allergy Verified 01/30/22 16:00 Review of Systems ROS Statement: Those systems with pertinent positive or pertinent negative responses have been documented in the HPI. ROS Other: All systems not noted in ROS Statement are negative. Past Medical History Past Medical History: Hypertension, Renal Disease Additional Past Medical History / Comment(s): pt non compliant with BP meds History of Any Multi-Drug Resistant Organisms: None Reported Past Surgical History: No Surgical Hx Reported Additional Past Surgical History / Comment(s): right achilles tendon rupture Past Psychological History: No Psychological Hx Reported Smoking Status: Vaper Past Alcohol Use History: None Reported Past Drug Use History: Cocaine, Methamphetamine, Opiates General Exam Limitations: no limitations General appearance: alert, in no apparent distress Respiratory exam: Present: normal lung sounds bilaterally. Absent: respiratory distress, wheezes, rales, rhonchi, stridor Cardiovascular Exam: Present: regular rate, normal rhythm, normal heart sounds. Absent: systolic murmur, diastolic murmur, rubs, gallop, clicks Extremities exam: Present: normal inspection, full ROM, normal capillary refill (2+ bilateral DP pulses.), other (Negative straight leg raise bilaterally. 5+ lower extremity strength bilaterally). Absent: tenderness, pedal edema, joint swelling, calf tenderness Back exam: Present: normal inspection, full ROM, muscle spasm (Right lumbar spine) Neurological exam: Present: alert, oriented X3, CN II-XII intact, normal gait, reflexes normal Skin exam: Present: warm, dry, intact, normal color. Absent: rash Course Vital Signs 11/25/24 11/25/24 13:49 15:40 Temperature 97.4 F L 98 F Pulse Rate 86 71 Respiratory 18 16 Rate Blood Pressure 181/113 190/124 O2 Sat by Pulse 100 99 Oximetry Medical Decision Making - Medical Decision Making Was pt. sent in by a medical professional or institution (CARIDAD Treviño, MUMPS DEVELOPER, urgent care, hospital, or detention...) When possible be specific @ -No Did you speak to anyone other than the patient for history (EMS, parent, family, police, friend...)? What history was obtained from this source @ -No Did you review nursing and triage notes (agree or disagree)? Why? @ -I reviewed and agree with nursing and triage notes Were old charts reviewed (outside hosp., previous admission, EMS record, old EKG, old radiological studies, urgent care reports/EKG's, detention records)? Report findings @ -No old charts were reviewed Differential Diagnosis (chest pain, altered mental status, abdominal pain women, abdominal pain men, vaginal bleeding, weakness, fever, dyspnea, syncope, headache, dizziness, GI bleed, back pain, seizure, CVA, palpatations, mental health, musculoskeletal)? @ -Differential Back Pain:Strain, zoster, cauda equina syndrome, epidural abscess, vertebral osteomyelitis, discitis, fracture, subluxation, disc herniation, DJD, spinal stenosis, dissection, AAA, pancreatitis, peptic ulcer disease, pyelonephritis, kidney stone, this is not meant to be an all-inclusive list. EKG interpreted by me (3pts min.). @ -None done X-rays interpreted by me (1pt min.). @ -Lumbar spine x-ray interpreted me negative for acute fractures or dislocations. CT interpreted by me (1pt min.). @ -None done U/S interpreted by me (1pt. min.). @ -None done What testing was considered but not performed or refused? (CT, X-rays, U/S, labs)? Why? @ -None What meds were considered but not given or refused? Why? @ -None Did you discuss the management of the patient with other professionals (professionals i.e. , PA, MUMPS DEVELOPER, lab, RT, psych nurse, social media project manager, drapery and upholstery measurer, teacher, gunnery/ordnance officer, disease case manager)? Give summary @ -No Was smoking cessation discussed for >3mins.? @ -No Was critical care preformed (if so, how long)? @ -No Were there social determinants of health that impacted care today? How? (Homelessness, low income, unemployed, alcoholism, drug addiction, transportation, low edu. Level, literacy, decrease access to med. care, senior living, rehab)? @ -No Was there de-escalation of care discussed even if they declined (Discuss DNR or withdrawal of care, Hospice)? DNR status @ -No What co-morbidities impacted this encounter? (DM, HTN, Smoking, COPD, CAD, Cancer, CVA, ARF, Chemo, Hep., AIDS, mental health diagnosis, sleep apnea, morbid obesity)? @ -HTN Was patient admitted / discharged? Hospital course, mention meds given and route, prescriptions, significant lab abnormalities, going to OR and other pertinent info. @ -Discharge. 39-year-old male presented the ER for evaluation of back pain. Patient is hypertensive 181/113. He does report a history of this and states he is not compliant with medications. Vitals otherwise with acceptable limits. Patient is neurovascularly intact with no red flag symptoms indicative of cauda equina syndrome. Tenderness overlying right lumbar paraspinal muscles. X-rays obtained negative for acute fractures or dislocations. Patient given symptomatic control with ibuprofen, lidocaine patch and Norflex. Upon reevaluation, patient resting comfortably in exam room no signs of acute distress. Results discussed with patient, all questions answered. I advised continued use of inmb-ghy-mdkljbc ibuprofen and Tylenol for pain control outpatient. Lidocaine patch and Flexeril prescribed. I advised patient to follow-up with PCP for further evaluation of hypertension I also encouraged him to monitor blood pressure and keep a log. Educated importance of taking antihypertensive medications. He denies any chest pain, shortness of breath, dizziness or lightheadedness. Patient will be discharged in stable condition with follow-up PCP. Return parameters discussed. Patient verbally expressed understanding agreement with care plan. Case discussed with ED attending, Dr. Ye. Undiagnosed new problem with uncertain prognosis? @ -No Drug Therapy requiring intensive monitoring for toxicity (Heparin, Nitro, Insulin, Cardizem)? @ -No Were any procedures done? @ -No Diagnosis/symptom? @ -Back pain Acute, or Chronic, or Acute on Chronic? @ -Acute Uncomplicated (without systemic symptoms) or Complicated (systemic symptoms)? @ -Uncomplicated Side effects of treatment? @ -No Exacerbation, Progression, or Severe Exacerbation? @ -No Poses a threat to life or bodily function? How? (Chest pain, [place], [place], pneumonia, PE, COPD, DKA, ARF, appy, cholecystitis, CVA, Diverticulitis, Homicidal, Suicidal, threat to staff... and all critical care pts) @ -No - Radiology Data Radiology results: report reviewed, image reviewed Disposition Clinical Impression: Back pain Disposition: HOME SELF-CARE Condition: Stable Instructions (If sedation given, give patient instructions): Acute Low Back Pain (ED) Additional Instructions: Continue moei-lpd-kuimwkn ibuprofen and Tylenol for pain control. I also recommend heat and massage. Follow-up with PCP. Return to the ER for new or worsened concerns. I highly recommend you start taking your blood pressure medication as prescribed. I also recommend taking blood pressure at least twice a day and keeping a log follow-up closely with PCP in the next 1 to 2 days. Prescriptions: Cyclobenzaprine [Flexeril] 10 mg PO TID PRN #15 tab PRN Reason: Muscle Spasm Lidocaine 5% Patch [Lidoderm] 1 patch TOPICAL DAILY #30 patch Is patient prescribed a controlled substance at d/c from ED?: No Referrals: None,Stated [Primary Care Provider] - 1-2 days [facility] [NON-STAFF] - 1-2 days [facility] [NON-STAFF] - 1-2 days Forms: Area PCPs Time of Disposition: 15:52
[2024-11-25] MEDS: IBUPROFEN 600 MG TAB PO STA (15:09)
[2024-11-25] MEDS: LIDOCAINE 4% PATCH TOPICAL ONE (15:09)
[2024-11-25] MEDS: ORPHENADRINE 30 MG/ML 2 ML VIAL IM STA (15:09)
--- NOTE | 2024-11-25 15:28 | XR ---
EXAMINATION TYPE: XR lumbar spine 2 or 3V DATE OF EXAM: 11/25/2024 3:23 PM COMPARISON: None. CLINICAL INDICATION: Male, 39 years old with history of right sided back pain, TECHNIQUE: 3 views obtained FINDINGS: There are 5 lumbar type vertebral bodies identified. The lumbar spine shows satisfactory alignment without evidence of acute fracture or dislocation. Vertebral body heights are within normal limits. Disc spaces are well preserved. The overlying soft tissue appears unremarkable. IMPRESSION: No acute fracture or dislocation is seen in the lumbar spine.ICD 10 NO FRACTURE, INITIAL EVALUATION [facility], , 11/25/2024 3:26 PM
[2024-11-25 15:51] VITALS: BP 190/124; PULSE 71; RESP 16; TEMP 98
== END 2024-11-25 16:00 | disposition home or self-care (01) ==
LOC: EC 13:35
DX: M54.50 Low back pain, unspecified (principal); I10 Essential (primary) hypertension; F17.290 Nicotine dependence, other tobacco product, uncomplicated
CPT/HCPCS: 99283; 96372; 72100; J2360

== ENCOUNTER 2025-01-14 11:41 | Inpatient (IN) | payer OTHER, MEDICAID ==
[2025-01-14] MEDS: LABETALOL 5 MG/ML VIAL MDV IVP STA (12:53)
[2025-01-14 13:15] LABS: Basophils # (A) 0.04 10*3/uL (0.00-0.10); Basophils % (A) 0.9 %; Eosinophils # (A) 0.16 10*3/uL (0.04-0.35); Eosinophils % (A) 3.4 %; HCT 44.8 % (39.6-50.0); HGB 15.4 g/dL (13.0-17.0); Lymphocytes # (A) 1.12 10*3/uL (0.90-5.00); Lymphocytes % (A) 24.1 %; MCH 27.9 pg (27.0-32.0); MCHC 34.4 g/dL (32.0-37.0); MCV 81.3 fL (80.0-97.0); Mean Platelet Volume 11.5 fL (9.5-12.2); Monocytes # (A) 0.47 10*3/uL (0.20-1.00); Monocytes % (A) 10.1 %; Neutrophils # (A) 2.84 10*3/uL (1.80-7.70); Neutrophils % (A) 61.3 %; Platelet Count 192 10*3/uL (140-440); RBC 5.51 10*6/uL (4.40-5.60); RDW 12.9 % (11.5-14.5); WBC 4.64 10*3/uL (4.50-10.00)
[2025-01-14 13:32] LABS: ALT 22 U/L (4-49); AST 29 U/L (17-59); African American GFR (CKD) >90 (>60 ml/min/1.73 sqM); Albumin 4.5 g/dL (3.5-5.0); Alkaline Phosphatase 58 U/L (38-126); Anion Gap 10 mmol/L; Blood Urea Nitrogen 16 mg/dL (9-20); Calcium 9.5 mg/dL (8.4-10.2); Carbon Dioxide 26 mmol/L (22-30); Chloride 106 mmol/L (98-107); Glucose 107 mg/dL (74-99); Non-African American GFR(CKD) >90 (>60 ml/min/1.73 sqM); Potassium 3.9 mmol/L (3.5-5.1); Sodium 142 mmol/L (137-145); Total Protein 6.7 g/dL (6.3-8.2)
[2025-01-14 13:36] LABS: Amphetamine Screen,Urine Detected (NotDetected); Barbiturate Screen,Urine Not Detected (NotDetected); Benzodiazepines Screen,Urine Not Detected (NotDetected); Cocaine Screen,Urine Detected (NotDetected); Methadone Screen, Urine Not Detected (NotDetected); Opiate Screen,Urine Not Detected (NotDetected); Oxycodone Screen, Urine Not Detected (NotDetected); Phencyclidine Screen,Urine Not Detected (NotDetected); Tricyclic Antidepressant,Urine Not Detected (NotDetected); Urn Cannabinoid Scrn Detected (NotDetected)
--- NOTE | 2025-01-14 13:37 | ED ---
Psych HPI - General Chief Complaint: Psychiatric Symptoms Stated Complaint: Mental health eval Time Seen by Provider: 01/14/25 11:48 Source: patient, family, RN notes reviewed Mode of arrival: ambulatory Limitations: no limitations - History of Present Illness Initial Comments: 39-year-old male presents emergency department with family for psychiatric va luation. Patient states that he is severely depressed which has been ongoing he has not seen them very further as he states that he is feeling suicidal with worsening thoughts of harming self he states that he tried to hang himself with the extension cord slipped immediately on . Patient does admit to drug use, recent alcohol use but denies any recent rehab he states has been to rehab in the past. Patient is not on any current psychiatric medications he supposed be medications for blood pressure but is noncompliant. - Related Data Previous Rx's Medication Instructions Recorded lisinopriL [Prinivil] 20 mg PO DAILY #30 tab 01/30/22 Cyclobenzaprine [Flexeril] 10 mg PO TID PRN #15 tab 11/25/24 Lidocaine 5% Patch [Lidoderm] 1 patch TOPICAL DAILY #30 patch 11/25/24 Allergies Allergy/AdvReac Type Severity Reaction Status Date / Time No Known Allergies Allergy Verified 01/14/25 11:44 Review of Systems ROS Statement: Those systems with pertinent positive or pertinent negative responses have been documented in the HPI. ROS Other: All systems not noted in ROS Statement are negative. Past Medical History Past Medical History: Hypertension, Renal Disease Additional Past Medical History / Comment(s): pt non compliant with BP meds History of Any Multi-Drug Resistant Organisms: None Reported Past Surgical History: No Surgical Hx Reported Additional Past Surgical History / Comment(s): right achilles tendon rupture Past Psychological History: No Psychological Hx Reported Smoking Status: Vaper Past Alcohol Use History: None Reported Past Drug Use History: Cocaine, Methamphetamine, Opiates General Exam Limitations: no limitations General appearance: alert, in no apparent distress Head exam: Present: atraumatic, normocephalic, normal inspection Eye exam: Present: normal appearance, PERRL, EOMI. Absent: scleral icterus, conjunctival injection, periorbital swelling ENT exam: Present: normal exam, normal oropharynx, mucous membranes moist, TM's normal bilaterally, normal external ear exam Neck exam: Present: normal inspection (No koenig noted on the neck), full ROM. Absent: tenderness, meningismus, lymphadenopathy Respiratory exam: Present: normal lung sounds bilaterally. Absent: respiratory distress, wheezes, rales, rhonchi, stridor Cardiovascular Exam: Present: regular rate, normal rhythm, normal heart sounds. Absent: systolic murmur, diastolic murmur, rubs, gallop, clicks GI/Abdominal exam: Present: soft, normal bowel sounds. Absent: distended, tenderness, guarding, rebound, rigid Neurological exam: Present: alert, oriented X3, CN II-XII intact, reflexes normal. Absent: motor sensory deficit Psychiatric exam: Present: depressed, flat affect Skin exam: Present: warm, dry, intact, normal color. Absent: rash Course Vital Signs 01/14/25 01/14/25 01/14/25 11:42 12:56 13:11 Temperature 97.3 F L Pulse Rate 89 81 78 Respiratory 16 18 18 Rate Blood Pressure 197/124 156/103 168/95 O2 Sat by Pulse 100 98 Oximetry 01/14/25 01/14/25 01/14/25 13:29 13:57 15:00 Temperature 97.8 F Pulse Rate 85 69 70 Respiratory 18 18 18 Rate Blood Pressure 180/96 158/79 166/114 O2 Sat by Pulse 98 98 98 Oximetry Medical Decision Making - Medical Decision Making Was pt. sent in by a medical professional or institution (CARIDAD Treviño, FAGOTING MACHINE OPERATOR, urgent care, hospital, or jail...) When possible be specific @ -No Did you speak to anyone other than the patient for history (EMS, parent, family, police, friend...)? What history was obtained from this source @ -No Did you review nursing and triage notes (agree or disagree)? Why? @ -I reviewed and agree with nursing and triage notes Were old charts reviewed (outside hosp., previous admission, EMS record, old EKG, old radiological studies, urgent care reports/EKG's, jail records)? Report findings @ -No old charts were reviewed Differential Diagnosis (chest pain, altered mental status, abdominal pain women, abdominal pain men, vaginal bleeding, weakness, fever, dyspnea, syncope, headache, dizziness, GI bleed, back pain, seizure, CVA, palpatations, mental health, musculoskeletal)? @ -Differential Mental Health Depression, anxiety, bipolar, psychosis, schizophrenia, borderline personality, situational depression, adjustment disorder, behavioral disorder, brain tumor, malingering, substance abuse, encephalopathy, medication reaction, dementia, hypothyroidism, degenerative neurologic disorder, lupus.... This is not meant to be all-inclusive list EKG interpreted by me (3pts min.). @ -None X-rays interpreted by me (1pt min.). @ -None done CT interpreted by me (1pt min.). @ -None done U/S interpreted by me (1pt. min.). @ -None done What testing was considered but not performed or refused? (CT, X-rays, U/S, labs)? Why? @ -None What meds were considered but not given or refused? Why? @ -None Did you discuss the management of the patient with other professionals (professionals i.e. , PA, FAGOTING MACHINE OPERATOR, lab, RT, psych nurse, social science teacher, research physician, teacher, landcare officer, renal case manager)? Give summary @ -No Was smoking cessation discussed for >3mins.? @ -No Was critical care preformed (if so, how long)? @ -No Were there social determinants of health that impacted care today? How? (Homelessness, low income, unemployed, alcoholism, drug addiction, transportation, low edu. Level, literacy, decrease access to med. care, group home, rehab)? @ -No Was there de-escalation of care discussed even if they declined (Discuss DNR or withdrawal of care, Hospice)? DNR status @ -No What co-morbidities impacted this encounter? (DM, HTN, Smoking, COPD, CAD, [place], CVA, ARF, Chemo, Hep., AIDS, mental health diagnosis, sleep apnea, morbid obesity)? @ -Depression hypertension Was patient admitted / discharged? Hospital course, mention meds given and route, prescriptions, significant lab abnormalities, going to OR and other pertinent info. @ -Admit to 3 W. patient voluntary signing. Will consult to medicine for hypertension Undiagnosed new problem with uncertain prognosis? @ -No Drug Therapy requiring intensive monitoring for toxicity (Heparin, Nitro, In sulin, Cardizem)? @ -No Were any procedures done? @ -No Diagnosis/symptom? @ -Depression [place] hypertension Acute, or Chronic, or Acute on Chronic? @ -Acute Uncomplicated (without systemic symptoms) or Complicated (systemic symptoms)? @ -Complicated Side effects of treatment? @ -No Exacerbation, Progression, or Severe Exacerbation? @ -No Poses a threat to life or bodily function? How? (Chest pain, [place], [place], pneumonia, PE, COPD, DKA, ARF, appy, cholecystitis, CVA, Diverticulitis, Homicidal, Suicidal, threat to staff... and all critical care pts) @ -Yes suicidal - Lab Data Result diagrams: 01/14/25 12:49 01/14/25 12:49 Lab Results 01/14/25 01/14/25 01/14/25 Range/Units 12:49 12:49 12:50 WBC 4.64 (4.50-10.00) 10*3/uL RBC 5.51 (4.40-5.60) 10*6/uL Hgb 15.4 (13.0-17.0) g/dL Hct 44.8 (39.6-50.0) % MCV 81.3 (80.0-97.0) fL MCH 27.9 (27.0-32.0) pg MCHC 34.4 (32.0-37.0) g/dL Plt Count 192 (140-440) 10*3/uL MPV 11.5 (9.5-12.2) fL Immature Gran % (Auto) 0.2 % Neutrophils % 61.3 % Lymphocytes % 24.1 % Monocytes % 10.1 % Eosinophils % 3.4 % Basophils % 0.9 % Immature Gran # 0.01 (0.00-0.04) 10*3/uL Neutrophils # 2.84 (1.80-7.70) 10*3/uL Lymphocytes # 1.12 (0.90-5.00) 10*3/uL Monocytes # 0.47 (0.20-1.00) 10*3/uL Eosinophils # 0.16 (0.04-0.35) 10*3/uL Basophils # 0.04 (0.00-0.10) 10*3/uL Sodium 142 (137-145) mmol/L Potassium 3.9 (3.5-5.1) mmol/L Chloride 106 (98-107) mmol/L Carbon Dioxide 26 (22-30) mmol/L Anion Gap 10 mmol/L BUN 16 (9-20) mg/dL Creatinine 0.90 (0.66-1.25) mg/dL Est GFR (CKD-EPI)AfAm >90 (>60 ml/min/1.73 sqM) Est GFR (CKD-EPI)NonAf >90 (>60 ml/min/1.73 sqM) Glucose 107 H (74-99) mg/dL Calcium 9.5 (8.4-10.2) mg/dL Total Bilirubin 1.0 (0.2-1.3) mg/dL AST 29 (17-59) U/L ALT 22 (4-49) U/L Alkaline Phosphatase 58 (38-126) U/L Total Protein 6.7 (6.3-8.2) g/dL Albumin 4.5 (3.5-5.0) g/dL Urine Opiates Screen Not Detected (NotDetected) Ur Oxycodone Screen Not Detected (NotDetected) Urine Methadone Screen Not Detected (NotDetected) Ur Barbiturates Screen Not Detected (NotDetected) U Tricyclic Antidepress Not Detected (NotDetected) Ur Phencyclidine Scrn Not Detected (NotDetected) Ur Amphetamines Screen Detected H (NotDetected) U Methamphetamines Scrn Detected H (NotDetected) U Benzodiazepines Scrn Not Detected (NotDetected) Urine Cocaine Screen Detected H (NotDetected) U Marijuana (THC) Screen Detected H (NotDetected) SARS-CoV-2 (PCR) (Not Detectd) 01/14/25 Range/Units 12:55 WBC (4.50-10.00) 10*3/uL RBC (4.40-5.60) 10*6/uL Hgb (13.0-17.0) g/dL Hct (39.6-50.0) % MCV (80.0-97.0) fL MCH (27.0-32.0) pg MCHC (32.0-37.0) g/dL Plt Count (140-440) 10*3/uL MPV (9.5-12.2) fL Immature Gran % (Auto) % Neutrophils % % Lymphocytes % % Monocytes % % Eosinophils % % Basophils % % Immature Gran # (0.00-0.04) 10*3/uL Neutrophils # (1.80-7.70) 10*3/uL Lymphocytes # (0.90-5.00) 10*3/uL Monocytes # (0.20-1.00) 10*3/uL Eosinophils # (0.04-0.35) 10*3/uL Basophils # (0.00-0.10) 10*3/uL Sodium (137-145) mmol/L Potassium (3.5-5.1) mmol/L Chloride (98-107) mmol/L Carbon Dioxide (22-30) mmol/L Anion Gap mmol/L BUN (9-20) mg/dL Creatinine (0.66-1.25) mg/dL Est GFR (CKD-EPI)AfAm (>60 ml/min/1.73 sqM) Est GFR (CKD-EPI)NonAf (>60 ml/min/1.73 sqM) Glucose (74-99) mg/dL Calcium (8.4-10.2) mg/dL Total Bilirubin (0.2-1.3) mg/dL AST (17-59) U/L ALT (4-49) U/L Alkaline Phosphatase (38-126) U/L Total Protein (6.3-8.2) g/dL Albumin (3.5-5.0) g/dL Urine Opiates Screen (NotDetected) Ur Oxycodone Screen (NotDetected) Urine Methadone Screen (NotDetected) Ur Barbiturates Screen (NotDetected) U Tricyclic Antidepress (NotDetected) Ur Phencyclidine Scrn (NotDetected) Ur Amphetamines Screen (NotDetected) U Methamphetamines Scrn (NotDetected) U Benzodiazepines Scrn (NotDetected) Urine Cocaine Screen (NotDetected) U Marijuana (THC) Screen (NotDetected) SARS-CoV-2 (PCR) Not Detected (Not Detectd) Disposition Clinical Impression: Depression, Suicidal ideation, Hypertension Disposition: TRANSFER TO PSYCH HOSP/UNIT Referrals: None,Stated [Primary Care Provider] - 1-2 days Time of Disposition: 15:19
[2025-01-14] MEDS ORDERED: MAGNESIUM HYDROXIDE 2,400 MG/30 ML CUP PO PRN (15:38)
[2025-01-14] MEDS ORDERED: haloperidoL 5 MG TAB PO PRN (15:38)
[2025-01-14] MEDS ORDERED: MAG HYDROX/AL HYDROX/SIMETH 355 ML BOTTLE PO PRN (15:38)
[2025-01-14] MEDS ORDERED: IBUPROFEN 600 MG TAB PO PRN (15:38)
[2025-01-14] MEDS ORDERED: ACETAMINOPHEN TAB 325 MG TAB PO PRN (15:38)
[2025-01-14] MEDS ORDERED: LORazepam 2 MG/ML INJ IM PRN (15:41)
[2025-01-14] MEDS ORDERED: HALOPERIDOL LACTATE 5 MG/ML 1 ML VIAL IM PRN (15:41)
[2025-01-14] MEDS: lisinopriL 20 MG TAB PO SCH (16:26)
[2025-01-14] MEDS: NICOTINE 14MG/24HR PATCH TRANSDERM SCH (16:26)
[2025-01-14] MEDS: LORazepam 1 MG TAB PO PRN (16:29)
--- NOTE | 2025-01-15 08:52 | P.HP ---
Psychiatric H&P - . H&P Date: 01/15/25 History & Physical: Allergies Allergy/AdvReac Type Severity Reaction Status Date / Time No Known Allergies Allergy Verified 01/14/25 11:44 Vital Signs Temp 98.2 F 01/14/25 21:00 Pulse 56 L 01/14/25 21:00 Resp 16 01/14/25 21:00 BP 130/70 01/14/25 21:00 Pulse Ox 100 01/14/25 21:00 FiO2 Intake & Output 01/14/25 01/15/25 01/15/25 18:59 06:59 18:59 Weight 83.915 kg Laboratory Last Values WBC 4.64 10*3/uL (4.50-10.00) 01/14/25 12:49 RBC 5.51 10*6/uL (4.40-5.60) 01/14/25 12:49 Hgb 15.4 g/dL (13.0-17.0) 01/14/25 12:49 Hct 44.8 % (39.6-50.0) 01/14/25 12:49 MCV 81.3 fL (80.0-97.0) 01/14/25 12:49 MCH 27.9 pg (27.0-32.0) 01/14/25 12:49 MCHC 34.4 g/dL (32.0-37.0) 01/14/25 12:49 Plt Count 192 10*3/uL (140-440) 01/14/25 12:49 MPV 11.5 fL (9.5-12.2) 01/14/25 12:49 Immature Gran % (Auto) 0.2 % 01/14/25 12:49 Neutrophils % 61.3 % 01/14/25 12:49 Lymphocytes % 24.1 % 01/14/25 12:49 Monocytes % 10.1 % 01/14/25 12:49 Eosinophils % 3.4 % 01/14/25 12:49 Basophils % 0.9 % 01/14/25 12:49 Immature Gran # 0.01 10*3/uL (0.00-0.04) 01/14/25 12:49 Neutrophils # 2.84 10*3/uL (1.80-7.70) 01/14/25 12:49 Lymphocytes # 1.12 10*3/uL (0.90-5.00) 01/14/25 12:49 Monocytes # 0.47 10*3/uL (0.20-1.00) 01/14/25 12:49 Eosinophils # 0.16 10*3/uL (0.04-0.35) 01/14/25 12:49 Basophils # 0.04 10*3/uL (0.00-0.10) 01/14/25 12:49 Sodium 142 mmol/L (137-145) 01/14/25 12:49 Potassium 3.9 mmol/L (3.5-5.1) 01/14/25 12:49 Chloride 106 mmol/L (98-107) 01/14/25 12:49 Carbon Dioxide 26 mmol/L (22-30) 01/14/25 12:49 Anion Gap 10 mmol/L 01/14/25 12:49 BUN 16 mg/dL (9-20) 01/14/25 12:49 Creatinine 0.90 mg/dL (0.66-1.25) 01/14/25 12:49 Est GFR (CKD-EPI)AfAm >90 (>60 ml/min/1.73 sqM) 01/14/25 12:49 Est GFR (CKD-EPI)NonAf >90 (>60 ml/min/1.73 sqM) 01/14/25 12:49 Glucose 107 mg/dL (74-99) H 01/14/25 12:49 Calcium 9.5 mg/dL (8.4-10.2) 01/14/25 12:49 Total Bilirubin 1.0 mg/dL (0.2-1.3) 01/14/25 12:49 AST 29 U/L (17-59) 01/14/25 12:49 ALT 22 U/L (4-49) 01/14/25 12:49 Alkaline Phosphatase 58 U/L (38-126) 01/14/25 12:49 Total Protein 6.7 g/dL (6.3-8.2) 01/14/25 12:49 Albumin 4.5 g/dL (3.5-5.0) 01/14/25 12:49 Urine Opiates Screen Not Detected (NotDetected) 01/14/25 12:50 Ur Oxycodone Screen Not Detected (NotDetected) 01/14/25 12:50 Urine Methadone Screen Not Detected (NotDetected) 01/14/25 12:50 Ur Barbiturates Screen Not Detected (NotDetected) 01/14/25 12:50 U Tricyclic Antidepress Not Detected (NotDetected) 01/14/25 12:50 Ur Phencyclidine Scrn Not Detected (NotDetected) 01/14/25 12:50 Ur Amphetamines Screen Detected (NotDetected) H 01/14/25 12:50 U Methamphetamines Scrn Detected (NotDetected) H 01/14/25 12:50 U Benzodiazepines Scrn Not Detected (NotDetected) 01/14/25 12:50 Urine Cocaine Screen Detected (NotDetected) H 01/14/25 12:50 U Marijuana (THC) Screen Detected (NotDetected) H 01/14/25 12:50 SARS-CoV-2 (PCR) Not Detected (Not Detectd) 01/14/25 12:55 Dictation was produced using View3 dictation software. Please excuse any grammatical, word or spelling errors. IDENTIFYING DATA: Patient is a 39 years old male presented to the emergency room for psychiatric evaluation. HPI: Patient presented to the hospital for psychiatric evaluation. Per chart review the patient initially called his sister to bring him to the hospital, he has been severely depressed, reported suicidal ideation that has been worsening lately, reported worsening self-harm thoughts, it is reported that he tried to hang himself with an extension cord last . Reported that he has been feeling like a burden to everyone around him and states that he has been in a toxic relationship. He is not taking any psychotropic medication currently, and reported that he does not take his blood pressure medication because he wanted his body to give up. Reported that he feels defeated and that he had rock bottom, reported he has no one to talk to. He has been using alcohol. UDS positive for amphetamine, methamphetamine, cocaine, and cannabis. Upon evaluation in the unit the patient was in his room, laying in bed, agreed to speak with the staff writer in the office. He states that he has been under stress, and crashed out on , and he was trying to harm himself with a robe, states that he was in a toxic relationship. States that he did not have any one to talk to, has no friends and he felt overwhelmed and wanted to end it. States that "I feel stupid about what I did." He states that he called his sister and asked to come to the hospital. He admitted to feeling down, sad, depression, h opeless for 4 yrs, he rated depression at 5/10. states that he tried to talk to a counselor in the past and it did not help. Sleep is good, and he reported good appetite. He denied any current SI/HI or self harm. States that he want to be around for his boys and sister. Admitted to being anxious about many people, and he prefers to be by himself. At this time patient denies any auditory or visual hallucinations. Patient denies any flight of ideas racing thoughts and increased in goal directed behavior. He states that he stopped using his BP medication since he did not care, however is willing to take from now. Patient admits to using tobacco vape, cannabis every few days, he admitted to using methamphetamine every other day, started in 2019. Denied using alcohol currently. Reported that he had 2 DUI years ago, stopped alcohol use 10 yrs ago. States that he was in rehab 5 yrs ago, and he does not consider going back at this time. PAST PSYCHIATRIC HISTORY: - Inpatient Hospitalizations: denies - Outpatient Care: denies seeing a psychiatrist, used to see a therapist in 2019 - Current Psychotropics: denied - Prior Psychotropics/Therapy: denied - Suicidal Attempts: denies any prior suicidal attempt aside from last - Self Harm: denies - Trauma History: denies PMH: as per ER note Past Medical History: Hypertension, Renal Disease Additional Past Medical History / Comment(s): pt non compliant with BP meds History of Any Multi-Drug Resistant Organisms: None Reported Past Surgical History: No Surgical Hx Reported Additional Past Surgical History / Comment(s): right achilles tendon rupture Past Psychological History: No Psychological Hx Reported Smoking Status: Vaper Past Alcohol Use History: None Reported Past Drug Use History: Cocaine, Methamphetamine, Opiates ALLERGIES: as per EMR CHEMICAL DEPENDENCY HISTORY: as per HPI FAMILY PSYCHIATRIC/SUBSTANCE USE HISTORY: nephew 18 yo killed himself 4 yrs ago. Alcohol use issues in the family SOCIAL HISTORY: Patient was born and raised in [place], he is single, never , have 3 boys, lives in an apartment by himself. He is construction. Claims he has HS diploma. 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 2 DUI years ago, stopped alcohol use 10 yrs ago. MENTAL STATUS EXAM: General Appearance: Patient appears to be stated age is alert, directable, and attempts to cooperate. Patient appears to have fair hygiene and grooming. Behavior: Patient is seated without any agitated behavior. Speech: Patient's speech is fluent and nonpressured. Mood/Affect: Patient reports their mood is "down", affect is congruent and constricted. Suicidality/Homicidality: Patient denies having any homicidal ideation intent or plan. Denies any suicidal ideations intent or plan Perceptions: Patient denies any visual hallucinations and denies any auditory hallucinations Though content/process: There is no evidence of any delusional thought content and thought process is linear and goal-directed. Memory and concentration: AOX3, grossly intact for the purposes of this session. Can spell "WORLD" backwards Judgment and insight: poor STRENGTHS/WEAKNESSES: strength is that patient is resilient. Weakness is that patient has poor judgment and is impulsive INTELLECT: average IMPRESSIONS: Patient is a 39 years old male with past psychiatric history of polysubstance use including methamphetamine, cocaine, cannabis, and nicotine who presented to the hospital after having suicidal thoughts, he had a suicidal attempt via hanging last . He has been under stress lately, just got out of a toxic relationship. He is willing to get some help, education was provided into substance use and its effect on has mental health, patient reported that he is considering to stop using substances, offered to rehab however patient does not consider at this time. He denied any current suicidal, self-harm or homicidal thoughts or behavior, regret his actions prior to this admission. Denied any AVH. He agreed to start Zoloft to help with mood and anxiety. Noted that he would like to have an outpatient therapist to talk to when he leaves. P sychoeducation was provided into SSRI, risk, benefit and side effect discussed. Patient agreed to start medication. Major depressive disorder, severe, with suicidal ideation Generalized anxiety disorder Cocaine use disorder Methamphetamine use disorder Cannabis use disorder PLAN: -Patient is admitted under voluntary status to [facility]HU for stabilization of psychiatric symptoms and safety. Patient has signed adult voluntary form and medication consent and is placed in patient's chart. -Medications : -Start Zoloft 12.5 mg p.o. daily -Ativan and Haldol PRN for agitation/aggression -Patient was counselled on substance abuse and desired to cut back on use -Will offer patient subtance use rehab -Patient was informed of the risks, benefits and side effects of the medication and patient verbally consented to taking the medications. Patient signed med consent form and was placed in chart. Labs reviewed. -Internal Medicine consult to perform medical evaluation and physical. -NRT - nicotine patch -SW on board for discharge planning. Encourage patient to participate in groups to work on coping skills. 01/15/25 07:47 01/15/25 08:08
[2025-01-15 09:07] LABS: ALT 21 U/L (4-49); AST 29 U/L (17-59); Albumin 4.4 g/dL (3.5-5.0); Alkaline Phosphatase 60 U/L (38-126); Bilirubin, Delta 0.2 mg/dL (0.0-0.2); Bilirubin,Unconjugated 0.7 mg/dL (0.0-1.1); Total Bilirubin 0.9 mg/dL (0.2-1.3); Total Protein 6.4 g/dL (6.3-8.2)
[2025-01-15] MEDS: SERTRALINE 25 MG TAB PO SCH (09:37)
[2025-01-15 14:13] LABS: Chol/HDL Ratio 2.88 Ratio; LDL Cholesterol,Calculated 58.8 mg/dL (0.0-131.0)
--- NOTE | 2025-01-15 14:35 | P.MDCNMH ---
History of Present Illness H&P Date: 01/15/25 Patient is a 39-year-old male with past medical history of hypertension, polysubstance abuse, who presented to the hospital for psychiatric evaluation, currently admitted to [facility] for management of MDD with suicidal ideation. Internal medicine consulted for medical management. Patient's vitals reviewed, he is afebrile, morning blood pressure normotensive, satting well on room air, heart rate in 70s. Lab work from admission showed unremarkable CBC and CMP, UDS positive for amphetamines, methamphetamines, cocaine, THC, COVID-negative. Patient feels tired, no other Complaints including shortness of breath, chest pain, abdominal pain, changes in bowel habits, dysuria, dizziness,-nausea, vomiting Pertinent positives and negatives as discussed in HPI, a complete review of systems was performed and all other systems are negative. Patient seen and examined at bedside. Vital signs reviewed General: nontoxic, no distress, appears at stated age Derm: warm, dry Head: atraumatic, normocephalic, symmetric Eyes: EOMI, no lid lag, anicteric sclera, pupils equal round reactive to light ENT: Nose and ears atraumatic Neck: No thyromegaly, supple Mouth: no lip lesion, mucus membranes moist Cardiovascular: S1S2 reg, no murmur, no edema Lungs: clear to auscultation bilateral, no rhonchi, no rales, no wheeze, no accessory muscle use Abdominal: soft, nontender to palpation, no guarding, no appreciable organomegaly Ext: no gross muscle atrophy, muscle strength muscle strength 5 out of 5 in all 4 extremities, no contractures Neuro: CN II-XII grossly intact Psych: Flat affect Assessment/Plan: Hypertension continue home lisinopril 20 mg daily MDD with suicidal ideations: Management per primary psychiatric team Past Medical History Past Medical History: Hypertension, Renal Disease Additional Past Medical History / Comment(s): pt non compliant with BP meds History of Any Multi-Drug Resistant Organisms: None Reported Past Surgical History: No Surgical Hx Reported Additional Past Surgical History / Comment(s): right achilles tendon rupture Past Anesthesia/Blood Transfusion Reactions: No Reported Reaction Past Psychological History: No Psychological Hx Reported Smoking Status: Vaper Past Alcohol Use History: None Reported Past Drug Use History: Cocaine, Marijuana, Methamphetamine, Opiates Medications and Allergies Home Medications Medication Instructions Recorded Confirmed Type lisinopriL [Prinivil] 20 mg PO DAILY #30 tab 01/30/22 Rx Cyclobenzaprine [Flexeril] 10 mg PO TID PRN #15 tab 11/25/24 Rx Lidocaine 5% Patch [Lidoderm] 1 patch TOPICAL DAILY #30 patch 11/25/24 Rx Allergies Allergy/AdvReac Type Severity Reaction Status Date / Time No Known Allergies Allergy Verified 01/14/25 11:44 Physical Exam Vitals: Vital Signs Temp Pulse Pulse Resp BP BP Pulse Ox 01/15/25 08:13 98.4 F 73 20 123/81 100 01/14/25 21:00 98.2 F 56 L 16 130/70 100 01/14/25 16:32 97.6 F 102 H 20 161/105 97 01/14/25 15:25 65 18 148/92 97 01/14/25 15:00 97.8 F 70 18 166/114 98 Intake and Output 01/14/25 01/15/25 01/15/25 22:59 06:59 14:59 Other: Weight 83.915 kg 82.5 kg Cranial Nerve Examination - Cranial Nerves Cranial Nerve II- Optic: Intact Cranial Nerve III- Oculomotor: Intact Cranial Nerve IV- Trochlear: Intact Cranial Nerve V- Trigeminal: Intact Cranial Nerve - Abducens: Intact Cranial Nerve VII- Facial: Intact Cranial Nerve VIII- Auditory: Intact Cranial Nerve IX- Glossopharyngeal: Intact Cranial Nerve X- Vagus: Intact Cranial Nerve XI- Accessory: Intact Cranial Nerve XII- Hypoglossal: Intact Results CBC & Chem 7: 01/14/25 12:49 01/14/25 12:49
--- NOTE | 2025-01-16 11:58 | P.PN ---
Progress Note - Text Progress Note Date: 01/16/25 Interval History: Patient was seen lying in bed today and was directable and agreeable to speak with flex o writer operator. Patient wanted to speak to flex o writer operator in his room. He claims that he has been feeling tired and is sleeping during the day and not going to many groups. He was fairly superficial and guarded about what had occurred before coming to the hospital. Claims that he was using drugs like cocaine and methamphetamine however when asked about rehab he claims that he does not need it and he would rather go home. He was fairly focused on discharge. Denies any issues with mood today claims that he is feeling a bit better, denies any anxiety. Judgment and insight fairly poor. Claims that he slept fairly last night has been eating. Not going to groups. At this time patient denies any suicidal or homical ideations, intent or plan. Patient denies any auditory, visual hallucinations and denies any paranoia or delusions. Patient denies any side effects from the medications and has been compliant with meds. Mental Status Exam: General Appearance: [Patient appears to be some tattoos, stated age is alert, evasive/guarded] Behavior: [Patient is calmly seated without any agitated behavior.] Evasive and guarded Speech: Patient's speech is fluent and nonpressured. [place] Mood/Affect: Mood is improving mildly, affect is congruent and constricted. Suicidality/Homicidality: Patient denies having any suicidal or homicidal ideation intent or plan. Perceptions: Patient denies any visual hallucinations [and denies any auditory hallucinations] Though content/process: [There is no evidence of any delusional thought content and thought process is linear and goal-directed.] Poverty of content. Memory and concentration: AOX3, grossly intact for the purposes of this session Judgment and insight: Poor/superficial improving mildly IMPRESSIONS: Major depressive disorder, severe, with suicidal ideation Generalized anxiety disorder Cocaine use disorder Methamphetamine use disorder Cannabis use disorder PLAN: -Patient is admitted under voluntary status to [facility] for stabilization of psychiatric symptoms and safety. Patient has signed adult voluntary form and medication consent and is placed in patient's chart. -Medications : Increase Zoloft 25 mg p.o. nightly for mood/anxiety. -Ativan and Haldol PRN for agitation/aggression -NRT - nicotine patch -SW on board for discharge planning. Encourage patient to participate in groups to work on coping skills. Patient states that he is not interested in going to rehab. Hopeful for discharge in 2 to 3 days the patient is improving.
[2025-01-16] MEDS: SERTRALINE 25 MG TAB PO ONE (23:07)
[2025-01-17] MEDS: LIDOCAINE 4% PATCH TOPICAL SCH (10:00)
--- NOTE | 2025-01-17 11:24 | P.PN ---
Progress Note - Text Progress Note Date: 01/17/25 Interval History: Patient was seen lying in bed today and was directable and agreeable to speak with keno writer/runner. Patient wanted to speak to keno writer/runner in his room. Patient appears to be more awake today, he continues to be fairly guarded about the events that occurred before coming to the hospital. He did admit to "choking myself" and telling his sister that he was going for a walk. He claims that his sister forced him to come into the hospital for help. He continues to be fairly guarded and evasive about his methamphetamine use and continues to refuse rehab. He was fairly focused on discharge today, continues to avoid going to groups. Has been up for meals, claims that he slept fairly last night. At this time patient denies any suicidal or homical ideations, intent or plan. Patient denies any auditory, visual hallucinations and denies any paranoia or delusions. Patient denies any side effects from the medications and has been compliant with meds. Mental Status Exam: General Appearance: [Patient appears to be some tattoos, stated age is alert, evasive/guarded, improving mild] Behavior: [Patient is calmly seated without any agitated behavior.] Evasive and guarded, but improving mildly Speech: Patient's speech is fluent and nonpressured. [place], improving mildly Mood/Affect: Mood is improving mildly, affect is congruent and constricted. Suicidality/Homicidality: Patient denies having any suicidal or homicidal ideation intent or plan. Perceptions: Patient denies any visual hallucinations [and denies any auditory hallucinations] Though content/process: [There is no evidence of any delusional thought content and thought process is linear and goal-directed.] Poverty of content. Improving mildly Memory and concentration: AOX3, grossly intact for the purposes of this session Judgment and insight: Poor/superficial improving mildly IMPRESSIONS: Major depressive disorder, severe, with suicidal ideation Generalized anxiety disorder Cocaine use disorder Methamphetamine use disorder Cannabis use disorder PLAN: -Patient is admitted under voluntary status to [facility] for stabilization of psychiatric symptoms and safety. Patient has signed adult voluntary form and medication consent and is placed in patient's chart. -Medications : Zoloft 25 mg p.o. nightly for mood/anxiety. will likely increase to 50 mg qhs starting tomorrow -Ativan and Haldol PRN for agitation/aggression -NRT - nicotine patch -SW on board for discharge planning. Encourage patient to participate in groups to work on coping skills. Patient states that he is not interested in going to rehab. Hopeful for discharge the patient is improving.
[2025-01-17] MEDS: SERTRALINE 25 MG TAB PO SCH (20:08)
[2025-01-17 21:05] VITALS: RESP 16
[2025-01-18 09:07] VITALS: BP 118/84; PULSE 75; TEMP 97.4
--- NOTE | 2025-01-18 11:17 | P.DS ---
Providers Date of admission: 01/14/25 15:18 Expected date of discharge: 01/18/25 Attending physician: Mat Mac MD Consults: 01/14/25 15:20 Consult Physician Routine Consulting Provider: Pio Smith Consult Reason/Comments: HTN Do you want consulting provider notified?: Yes 01/14/25 15:38 Consult Physician Routine Consulting Provider: Sharita Cornejo Consult Reason/Comments: H&P Do you want consulting provider notified?: Yes Primary care physician: Stated None - Discharge Diagnosis(es) (1) Major depressive disorder, severe Current Visit: Yes Status: Acute Priority: High (2) Generalized anxiety disorder Current Visit: Yes Status: Acute Priority: Medium (3) Cocaine use disorder Current Visit: Yes Status: Acute Priority: High (4) Methamphetamine abuse Current Visit: Yes Status: Acute Priority: High (5) Cannabis use disorder Current Visit: Yes Status: Acute Priority: Medium (6) Nicotine dependence Current Visit: Yes Status: Acute Priority: Low Hospital Course: Admission HPI: Admission note was completed by Dr Lamb "patient is a 39 years old male presented to the emergency room for psychiatric evaluation. Patient presented to the hospital for psychiatric evaluation. Per chart review the patient initially called his sister to bring him to the hospital, he has been severely depressed, reported suicidal ideation that has been worsening lately, reported worsening self-harm thoughts, it is reported that he tried to hang himself with an extension cord last . Reported that he has been feeling like a burden to everyone around him and states that he has been in a toxic relationship. He is not taking any psychotropic medication currently, and reported that he does not take his blood pressure medication because he wanted his body to give up. Reported that he feels defeated and that he had rock bottom, reported he has no one to talk to. He has been using alcohol. UDS positive for amphetamine, methamphetamine, cocaine, and cannabis. Upon evaluation in the unit the patient was in his room, laying in bed, agreed to speak with the telegraphic typewriter installer in the office. He states that he has been under stress, and crashed out on , and he was trying to harm himself with a robe, states that he was in a toxic relationship. States that he did not have any one to talk to, has no friends and he felt overwhelmed and wanted to end it. States that "I feel stupid about what I did." He states that he called his sister and asked to come to the hospital. He admitted to feeling down, sad, depression, hopeless for 4 yrs, he rated depression at 5/10. states that he tried to talk to a counselor in the past and it did not help. Sleep is good, and he reported good appetite. He denied any current SI/HI or self harm. States that he want to be around for his boys and sister. Admitted to being anxious about many people, and he prefers to be by himself. At this time patient denies any auditory or visual hallucinations. Patient denies any flight of ideas racing thoughts and increased in goal directed behavior. He states that he stopped using his BP medication since he did not care, however is willing to take from now. 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 Denied using alcohol currently. Reported that he had 2 DUI years ago, stopped alcohol use 10 yrs ago. States that he was in rehab 5 yrs ago, and he does not consider going back at this time." Hospital course: Upon admission to the unit patient was directable and agreeable to commence treatment and signed adult voluntary form. Patient was initially isolative, depressed and anxious however with time and treatment patient got along well with other patients on the unit and followed unit protocol. Patient was compliant with the medications and denied any side effects throughout hospital course. Patient was started on Zoloft increased to a dose of 50 mg nightly for mood/anxiety. Patient spoke of his stressors however did not participate much in group/activity therapy and mainly kept to themselves during hospitalization. Patient was also seen by medical team for history and physical exam. Throughout the course of the hospitalization patient gradually improved with regards to mood, anxiety, suicidal thoughts, sleep and became more future oriented with improved insight and judgment. On the day of discharge patient denied any suicidal or homicidal ideations intent or plan denied any auditory or visual hallucinations. Patient endorsed wanting to live for their health, future and family. The patient denied any access to guns or weapons. Patient denied any paranoia and did not endorse any delusions. Patient does have a significant history of substance abuse and was counseled on abstaining from all substances including alcohol and marijuana. Patient was offered however declined inpatient substance-abuse rehab. Patient elected to do outpatient substance use treatment program through their outpatient provider. Patient was also counseled on the medications and need for regular compliance and was encouraged to follow-up with their outpatient appointment for mental health and also for primary care. Patient claims that he does not have any guns or weapons in his home, did not sign a release of information for anybody. He lives home alone. Mental status exam: General Appearance: Patient appears to be stated age is alert, pleasant, and cooperative. Patient is in no acute distress and has improved hygiene and grooming Behavior: Patient is calmly seated without any agitated behavior. Speech: Patient's speech is fluent and nonpressured. Mood/Affect: Patient reports their mood is "good", affect is congruent and euthymic. Suicidality/Homicidality: Patient denies having any suicidal or homicidal ideation intent or plan. Perceptions: Patient denies any auditory or visual hallucinations. Though content/process: There is no evidence of any delusional thought content and thought process is linear and goal-directed. More future oriented Memory and concentration: AOX3, grossly intact for the purposes of this session. Can spell "WORLD" backwards correctly. Judgment and insight: Chronically poor, however has improved with guarded prognosis Impression: Major depressive disorder severe Generalized anxiety disorder Cocaine use disorder Methamphetamine abuse Cannabis use disorder Nicotine dependence Plan: -Continue with discharge today as patient has improved and stabilized psychiatrically and is not currently an imminent threat to themself and/or others. Patient will remain at chronically elevated risk for harm to self and/or others due to their substance abuse. -Continue medications: Zoloft 50 mg nightly for mood/anxiety -Patient was counseled on the need for medication compliance and appropriate follow-up at mental health and also primary care for medical issues. Patient verbalized understanding and agreed. -Social work to help coordinate patients discharge today. also to ensure safe home environment that guns/weapons are either removed from the home or locked away. Social work also to arrange for patients follow up appointments with [facility] for psychiatric care along with follow up with primary care provider. -Patient counseled on abstaining from recreational drugs and marijuana and alcohol. Was informed/educated on the adverse effects on their physical and mental health. Patient verbally agreed and understood. Patient was offered substance abuse treatment however declined at this time. -Patient was instructed to return to the hospital or seek immediate medical care if their psychiatric or medical symptoms do worsen or reoccur. Allergies Allergy/AdvReac Type Severity Reaction Status Date / Time No Known Allergies Allergy Verified 01/14/25 11:44 Laboratory Results WBC 4.64 10*3/uL (4.50-10.00) 01/14/25 12:49 RBC 5.51 10*6/uL (4.40-5.60) 01/14/25 12:49 Hgb 15.4 g/dL (13.0-17.0) 01/14/25 12:49 Hct 44.8 % (39.6-50.0) 01/14/25 12:49 MCV 81.3 fL (80.0-97.0) 01/14/25 12:49 MCH 27.9 pg (27.0-32.0) 01/14/25 12:49 MCHC 34.4 g/dL (32.0-37.0) 01/14/25 12:49 Plt Count 192 10*3/uL (140-440) 01/14/25 12:49 MPV 11.5 fL (9.5-12.2) 01/14/25 12:49 Immature Gran % (Auto) 0.2 % 01/14/25 12:49 Neutrophils % 61.3 % 01/14/25 12:49 Lymphocytes % 24.1 % 01/14/25 12:49 Monocytes % 10.1 % 01/14/25 12:49 Eosinophils % 3.4 % 01/14/25 12:49 Basophils % 0.9 % 01/14/25 12:49 Immature Gran # 0.01 10*3/uL (0.00-0.04) 01/14/25 12:49 Neutrophils # 2.84 10*3/uL (1.80-7.70) 01/14/25 12:49 Lymphocytes # 1.12 10*3/uL (0.90-5.00) 01/14/25 12:49 Monocytes # 0.47 10*3/uL (0.20-1.00) 01/14/25 12:49 Eosinophils # 0.16 10*3/uL (0.04-0.35) 01/14/25 12:49 Basophils # 0.04 10*3/uL (0.00-0.10) 01/14/25 12:49 Sodium 142 mmol/L (137-145) 01/14/25 12:49 Potassium 3.9 mmol/L (3.5-5.1) 01/14/25 12:49 Chloride 106 mmol/L (98-107) 01/14/25 12:49 Carbon Dioxide 26 mmol/L (22-30) 01/14/25 12:49 Anion Gap 10 mmol/L 01/14/25 12:49 BUN 16 mg/dL (9-20) 01/14/25 12:49 Creatinine 0.90 mg/dL (0.66-1.25) 01/14/25 12:49 Est GFR (CKD-EPI)AfAm >90 (>60 ml/min/1.73 sqM) 01/14/25 12:49 Est GFR (CKD-EPI)NonAf >90 (>60 ml/min/1.73 sqM) 01/14/25 12:49 Glucose 107 mg/dL (74-99) H 01/14/25 12:[address] Glu mg/dL 103 mg/dL 01/14/25 12:49 Hemoglobin A1c 5.2 % (<=6.0) 01/14/25 12:49 Calcium 9.5 mg/dL (8.4-10.2) 01/14/25 12:49 Total Bilirubin 0.9 mg/dL (0.2-1.3) 01/14/25 12:49 Total Bilirubin 1.0 mg/dL (0.2-1.3) 01/14/25 12:49 Conjugated Bilirubin 0.0 mg/dL (0.0-0.3) 01/14/25 12:49 Unconjugated Bilirubin 0.7 mg/dL (0.0-1.1) 01/14/25 12:49 Delta Bilirubin 0.2 mg/dL (0.0-0.2) 01/14/25 12:49 AST 29 U/L (17-59) 01/14/25 12:49 AST 29 U/L (17-59) 01/14/25 12:49 ALT 21 U/L (4-49) 01/14/25 12:49 ALT 22 U/L (4-49) 01/14/25 12:49 Alkaline Phosphatase 58 U/L (38-126) 01/14/25 12:49 Alkaline Phosphatase 60 U/L (38-126) 01/14/25 12:49 Total Protein 6.4 g/dL (6.3-8.2) 01/14/25 12:49 Total Protein 6.7 g/dL (6.3-8.2) 01/14/25 12:49 Albumin 4.4 g/dL (3.5-5.0) 01/14/25 12:49 Albumin 4.5 g/dL (3.5-5.0) 01/14/25 12:49 Triglycerides 127.00 mg/dL (0.00-149.00) 01/14/25 12:49 Cholesterol 129.00 mg/dL (0.00-200.00) 01/14/25 12:49 LDL Cholesterol, Calc 58.8 mg/dL (0.0-131.0) 01/14/25 12:49 VLDL Cholesterol, Calc 25.40 mg/dL (5.00-40.00) 01/14/25 12:49 HDL Cholesterol 44.80 mg/dL (40.00-60.00) 01/14/25 12:49 Cholesterol/HDL Ratio 2.88 Ratio 01/14/25 12:49 TSH 0.945 mIU/L (0.465-4.680) 01/14/25 12:49 Urine Opiates Screen Not Detected (NotDetected) 01/14/25 12:50 Ur Oxycodone Screen Not Detected (NotDetected) 01/14/25 12:50 Urine Methadone Screen Not Detected (NotDetected) 01/14/25 12:50 Ur Barbiturates Screen Not Detected (NotDetected) 01/14/25 12:50 U Tricyclic Antidepress Not Detected (NotDetected) 01/14/25 12:50 Ur Phencyclidine Scrn Not Detected (NotDetected) 01/14/25 12:50 Ur Amphetamines Screen Detected (NotDetected) H 01/14/25 12:50 U Methamphetamines Scrn Detected (NotDetected) H 01/14/25 12:50 U Benzodiazepines Scrn Not Detected (NotDetected) 01/14/25 12:50 Urine Cocaine Screen Detected (NotDetected) H 01/14/25 12:50 U Marijuana (THC) Screen Detected (NotDetected) H 01/14/25 12:50 SARS-CoV-2 (PCR) Not Detected (Not Detectd) 01/14/25 12:55 Vital Signs Temp 97.4 F L 01/18/25 09:00 Pulse 75 01/18/25 09:00 Resp 16 01/18/25 09:00 BP 118/84 01/18/25 09:00 Pulse Ox 100 01/18/25 09:00 FiO2 Patient Condition at Discharge: Stable Plan - Discharge Summary Discharge Rx Participant: No New Discharge Prescriptions: New Nicotine 14Mg/24Hr Patch [Habitrol] 1 patch TRANSDERM DAILY patch Sertraline [Zoloft] 50 mg PO HS 30 Days #30 tab Continue lisinopriL [Prinivil] 20 mg PO DAILY 30 Days #30 tab Lidocaine 5% Patch [Lidoderm 5% Patch] 1 patch TOPICAL DAILY #30 patch Discontinued Cyclobenzaprine [Flexeril] 10 mg PO TID PRN #15 tab PRN Reason: Muscle Spasm Discharge Medication List Lidocaine 5% Patch [Lidoderm 5% Patch] 1 patch TOPICAL DAILY #30 patch 11/25/24 [Rx] Nicotine 14Mg/24Hr Patch [Habitrol] 1 patch TRANSDERM DAILY patch 01/18/25 [Rx] Sertraline [Zoloft] 50 mg PO HS 30 Days #30 tab 01/18/25 [Rx] lisinopriL [Prinivil] 20 mg PO DAILY 30 Days #30 tab 01/18/25 [Rx] Follow up Appointment(s)/Referral(s): None,Stated [Primary Care Provider] - 1-2 days Discharge Disposition: HOME SELF-CARE
[2025-01-18] MEDS ORDERED: SERTRALINE 50 MG TAB PO SCH (21:00)
== END 2025-01-18 12:24 | disposition home or self-care (01) | DRG 885 ==
LOC: EC 11:41 → 3MHU 15:18
PROVIDERS: ADMIT Psychiatry & Neurology Psychiatry; ATTEND Psychiatry & Neurology Psychiatry
DX: F32.2 Major depressive disorder, single episode, severe without psychotic features (principal); R45.851 Suicidal ideations; Z91.148 Patient's other noncompliance with medication regimen for other reason; F15.10 Other stimulant abuse, uncomplicated; I10 Essential (primary) hypertension; F14.10 Cocaine abuse, uncomplicated; Z11.52 Encounter for screening for COVID-19; F12.10 Cannabis abuse, uncomplicated; F41.1 Generalized anxiety disorder; Z79.899 Other long term (current) drug therapy
CPT/HCPCS: 36415; 80053; 80061; 80076; 80306; 82075; 83036; 84443; 85025; 87635; 96374; 99285